=== PATIENT | female | born 1955 | race Caucasian/White ===

== ENCOUNTER → 2016-04-20 | Outpatient (CLI) | payer OTHER ==
[~2016-04-20] MED LIST: CEPH500C PO; CHOL100010 PO; FLXUNK PO; LISI-461 PO; LORA-741 PO; PHNRUNK PO; PROM25SU28 PR; RANI300T2 PO
--- NOTE | 2016-04-20 12:36 | DIAGNOSTIC IMAGING REPORT ---
CHEST 2 VIEWS ROUTINE CLINICAL HISTORY: Chest discomfort. History of left breast cancer. COMPARISON STUDY: Chest radiograph October 12, 2015. FINDINGS: Left axillary clips are noted. The left breast may be surgically absent. There are cholecystectomy clips. There is no pneumothorax or pleural effusion. No airspace opacities are identified. Cardiac size is normal. Mediastinal contours are normal. There is no evidence of pulmonary edema. IMPRESSION: No acute cardiopulmonary findings. Electronically signed by: Serge Delgado M.D. 04/20/2016 12:34 PM Dictated Date/Time: 04/20/2016 12:33 PM
== END | disposition home or self-care (01) ==
LOC: C.RAD 11:52
PROVIDERS: ATTEND Pediatrics
DX: R07.89 Other chest pain (principal)

== ENCOUNTER → 2016-05-02 | Outpatient (CLI) | payer OTHER ==
--- NOTE | 2016-05-02 16:18 | MAMMOGRAPHY REPORT ---
ULTRASOUND OF LEFT BREAST: 05/02/2016 CLINICAL HISTORY: 60-year-old woman with a personal history of left breast cancer status post mastec lv. She presents with a history of left chest pain for 3-4 weeks. The worst pain occurred over a 3-4 day. The quality was sharp and intense and sometimes took the patient's breath away. Over tho se 3-4 days it increased in frequency, occurring approximately every hour, but then the pain has sin ce disappeared completely. No palpable mass, skin thickening or color changes. COMPARISON: None FINDINGS: The patient pointed out the area of pain in the previous area of the left breast along he r chest wall approximately 4 cm inferior to the mastectomy scar, spanning around 8-10 cm in medial t o lateral dimension. On palpation, there is no discrete mass. On visual inspection no skin changes or peau d'orange. On ultrasound, there is no focal skin thickening or suspicious mass within the s ubcutaneous tissues. IMPRESSION: ACR BI-RADS CATEGORY 2: BENIGN There is no sonographic evidence of malignancy or suspicious abnormality to explain the patient's tr ansient sharp intensity pain inferior to her mastectomy scar. Clinical follow-up is recommended and also consider a breast MRI to evaluate for any abnormal enhancement along the left mastectomy scar and also to evaluate the right breast, given the personal history of breast cancer. These results and recommendations were discussed with the patient at the time of the exam. Alison Jones M.D. ay/:05/02/2016 13:34:19 Digital Marketing Program Manager: Mirtha RAMESH)([place]), [facility] letter sent: Normal 1/2 BI-RADS Code: ACR BI-RADS Category 2: Benign
== END | disposition home or self-care (01) ==
LOC: C.MAMM 09:57
PROVIDERS: ATTEND Nurse Practitioner Family
DX: R07.9 Chest pain, unspecified (principal); Z85.3 Personal history of malignant neoplasm of breast; Z90.12 Acquired absence of left breast and nipple; Z08 Encounter for follow-up examination after completed treatment for malignant neoplasm

== ENCOUNTER 2016-09-23 22:51 | Emergency (ER) | payer OTHER ==
[~2016-09-23] VITALS: Ht 160 cm; Wt 54.8 kg
[~2016-09-23 22:51] MED LIST changes: -CEPH500C PO; -PROM25SU28 PR
[2016-09-23 22:55] VITALS: TEMP 36.6; Ht 160 cm; Wt 54.8 kg
[2016-09-23] MEDS ORDERED: LABETALOL HCL IV 5 MG/ML 20ML IV STA (23:22)
[2016-09-23] MEDS ORDERED: LORAZEPAM 2 MG/ML 1 ML VIAL IV STA (23:22)
--- NOTE | 2016-09-23 23:29 | EMERGENCY ROOM VISIT NOTE ---
History Report prepared by [place]: Margareth Sloan Under the Supervision of: Dr. Sher Newsome M.D. First contact with patient: 23:12 Chief Complaint: RASH Stated Complaint: L ARM LYMPHEDEMA AND RASH History of Present Illness The patient is a 61 year old female who presents to the Emergency Room with complaints of left arm lymphedema and a rash that suddenly appeared today. The patient has breast cancer. She reports being hypertensive but having no other symptoms. The patient denies having a headache, chest pain, and shortness of breath. She states that she has no history of MRSA. Source of History: patient Onset: today Position: arm (left) Quality: other (lymphedema, rash ) Timing: other (sudden) Associated Symptoms: No headache, No chest pain, No SOB Review of Systems See HPI for pertinent positives & negatives. A total of 10 systems reviewed and were otherwise negative. Past Medical & Surgical Medical Problems: (1) Hypertension (2) Kidney stones (3) Malignant neoplasm of upper-inner quadrant of female breast (4) Skin problem Surgical Problems: (1) Ectopic (2) Hx of cholecystectomy (3) Hx of mastectomy (4) Ovarian cyst Family History Diabetes mellitus FH: lung disease FHx: cancer FHx: heart disease Hypertension Social History Smoking Status: Former Smoker Alcohol Use: none Drug Use: none Marital Status: Current/Historical Medications Scheduled Cephalexin Monohydrate (Keflex), 500 MG PO QID Lisinopril (Zestril), 10 MG PO DAILY Ranitidine (Zantac), 300 MG PO DAILY Scheduled PRN Lorazepam (Ativan), 0.5 MG PO HS PRN for Anxiety Promethazine Hcl (Phenergan Suppository), 25 MG IL UD PRN for Migraine Allergies Coded Allergies: Butalbital (Verified Allergy, Severe, "resp. spasms", 09/24/16) codiene/butalbital/caffeine (not acetamin.) Caffeine (Verified Allergy, Severe, "resp. spasms", 09/24/16) Anastrozole (Unverified Allergy, Intermediate, no rash but intense itching , 09/24/16) Azithromycin (Unverified Allergy, Mild, RASH, 09/24/16) Lansoprazole (Unverified Allergy, Mild, rash, 09/24/16) Tramadol (Unverified Allergy, Mild, rash, 09/24/16) Metronidazole (Verified Allergy, Unknown, ANAPHYLAXIS, 09/24/16) Adhesives (Verified Adverse Reaction, Mild, SKIN IRRITATION, 09/24/16) Letrozole (Unverified Adverse Reaction, Unknown, severe joint pain, ) Prochlorperazine (Unverified Adverse Reaction, Unknown, nausea, 09/24/16) Uncoded Allergies: UNCLAS THER/AG (Allergy, Unknown, ? INGREDIENT IN COUGH MEDICINE, 05/14/09) Physical Exam Vital Signs Date Time Temp Pulse Resp B/P (MAP) Pulse Ox O2 Delivery O2 Flow Rate FiO2 09/24/16 00:46 88 18 144/93 98 Room Air 09/23/16 23:49 63 18 171/97 95 Room Air 09/23/16 23:38 65 18 214/126 09/23/16 22:55 36.6 63 18 201/105 96 Room Air Physical Exam GENERAL: Patient is anxious appearing and in no acute distress. HEENT: No acute trauma, normocephalic atraumatic, mucous membranes moist, no nasal congestion, no scleral icterus. NECK: No stridor, no adenopathy, no meningismus, trachea is midline. LUNGS: No dyspnea. Clear to auscultation and equal bilaterally. No wheeze, no rhonchi. HEART: Regular rate and rhythm. No murmurs, rubs, gallops appreciated. ABDOMEN: Soft, nontender, bowel sounds positive, no masses appreciated, no peritonitis. BACK: No midline tenderness, no CVA tenderness EXTREMITIES: Normal motion all extremities, no cyanosis, no edema. NEUROLOGIC: Alert and oriented, no acute motor or sensory deficits, no focal weakness, cranial nerves grossly intact. SKIN: Lacy red rash over left forearm circumferential just proximal to small skin tear. Medical Decision & Procedures Laboratory Results 09/23/16 23:33 Red Blood Count 4.63, Mean Corpuscular Volume 95.2, Mean Corpuscular Hemoglobin 32.0, Mean Corpuscular Hemoglobin Concent 33.6, Mean Platelet Volume 9.2, Neutrophils (%) (Auto) 58.2, Lymphocytes (%) (Auto) 27.4, Monocytes (%) (Auto) 9.5, Eosinophils (%) (Auto) 4.4, Basophils (%) (Auto) 0.5, Neutrophils # (Auto) 2.27, Lymphocytes # (Auto) 1.07, Monocytes # (Auto) 0.37, Eosinophils # (Auto) 0.17, Basophils # (Auto) 0.02 09/23/16 23:33 Test 09/23/16 23:33 White Blood Count 3.90 K/uL (4.8-10.8) Red Blood Count 4.63 M/uL (4.2-5.4) Hemoglobin 14.8 g/dL (12.0-16.0) Hematocrit 44.1 % (37-47) Mean Corpuscular Volume 95.2 fL (80-100) Mean Corpuscular Hemoglobin 32.0 pg (25-34) Mean Corpuscular Hemoglobin Concent 33.6 g/dl (32-36) Platelet Count 195 K/uL (130-400) Mean Platelet Volume 9.2 fL (7.4-10.4) Neutrophils (%) (Auto) 58.2 % Lymphocytes (%) (Auto) 27.4 % Monocytes (%) (Auto) 9.5 % Eosinophils (%) (Auto) 4.4 % Basophils (%) (Auto) 0.5 % Neutrophils # (Auto) 2.27 K/uL (1.4-6.5) Lymphocytes # (Auto) 1.07 K/uL (1.2-3.4) Monocytes # (Auto) 0.37 K/uL (0.11-0.59) Eosinophils # (Auto) 0.17 K/uL (0-0.5) Basophils # (Auto) 0.02 K/uL (0-0.2) RDW Standard Deviation 44.8 fL (36.4-46.3) RDW Coefficient of Variation 12.8 % (11.5-14.5) Immature Granulocyte % (Auto) 0.0 % Immature Granulocyte # (Auto) 0.00 K/uL (0.00-0.02) Anion Gap 5.0 mmol/L (3-11) Est Creatinine Clear Calc Drug Dose 69.9 ml/min Estimated GFR () 108.1 Estimated GFR (Non- 93.3 BUN/Creatinine Ratio 19.7 (10-20) Calcium Level 9.4 mg/dl (8.5-10.1) Total Creatine Kinase 97 U/L (26-192) Troponin I < 0.015 ng/ml (0-0.045) C-Reactive Protein < 0.29 mg/dl (0-0.29) Laboratory results as reviewed by me. Medications Administered Medications (Trade) Dose Ordered Sig/Liang Route Start Time Stop Time Status Last Admin Dose Admin Labetalol HCl (Normodyne IV) 10 mg NOW STAT IV 09/23/16 23:22 09/23/16 23:23 DC 09/23/16 23:40 10 MG Lorazepam (Ativan Inj) 0.5 mg NOW STAT IV 09/23/16 23:22 09/23/16 23:23 DC 09/23/16 23:40 0.5 MG Cephalexin Monohydrate (Keflex Cap) 500 mg NOW ONCE PO 09/24/16 00:30 09/24/16 00:31 DC 09/24/16 00:40 500 MG ECG Indication: other (lymphadema ) Rate (beats per minute): 66 Rhythm: normal sinus Findings: no acute ischemic change, no ectopy ED Course 2315: The patient was evaluated in room A4. A complete history and physical exam was performed. 2322: Ordered Lorazepam 0.5 mg IV, Labetalol HCl 10 mg IV. 0019: I checked on the patient and she feels well and wants to go home. Her blood pressure has improved. I discussed the remote possibility of a blood clot. She makes it clear that there is no swelling beyond her normal swelling. We are not ordering an ultrasound at this time. She will follow up with her PCP regarding her symptoms and her blood pressure. 0030: Ordered Cephalexin Monohydrate 500 mg PO. 0035: Reevaluated the patient. Discussed results and discharge instructions: She verbalized understanding and agreement. The patient is ready for discharge. Medical Decision Differential: Contact Dermatitis, DVT, Urticaria, Allergic Reaction, Cellulitis , Fungal, amongst other pathologies entertained. Medication Reconciliation: I attest that I have personally reviewed the patient 's current medication list. Blood pressure screening: Patient was found to have an elevated blood pressure and was referred to their primary doctor for recheck and further treatment. 51 yr old very pleasant female with left forearm erythema. Lacy in nature and circumferential. Patient makes clear no increase in swelling compared to normal. Distal pulses/nv intact without any swelling in hand/wrist. There is small knick in skin just distal to erythema. Labs unremarkable. Suspect this is heat reaction from being in sleeve in heat earlier today, however with her lymphedema history and break in skin I feel it indicated to treat with abx. I do not feel there is DVT. Came on too quickly for fungal. No clear evidence of allergic reaction. It is not herpetic in nature. We discussed symptoms requiring return. Follow up with PCP, especially given her HTN, though she makes very clear that she has severe white coat syndrome and that it usually is much better at home. Impression Primary Impression: Acute eruption of skin Additional Impression: Hypertension Scribe Attestation The scribe's documentation has been prepared under my direction and personally reviewed by me in its entirety. I confirm that the note above accurately reflects all work, treatment, procedures, and medical decision making performed by me. Departure Information Dispostion Home / Self-Care Prescriptions Cephalexin Monohydrate (Keflex) 500 Mg Cap 500 MG PO QID for 10 Days, #40 CAP Prov: Sher Newsome M.D. 09/24/16 Referrals Azra Lowry C.RSarahNSarahP. (PCP) Patient Instructions My [facility] Additional Instructions Keep arm elevated. Avoid excessive heat/sweating. Return if worsening rash, fevers, shortness of breath, swelling, pain or other concerns. We are always here to help. Your blood pressure was elevated during this visit. This is quite common in many people who are being evaluated in the Emergency Department for many reasons. However, it is important that you have your Primary Care Provider recheck your blood pressure and discuss whether treatment will be needed. intermodal dispatcher elevated blood pressure can lead to strokes, heart attacks, kidney failure amongst other medical issues. If you develop severe headaches, chest pain, weakness in arms or legs, or other concerning symptoms call 911. Problem Qualifiers
[2016-09-23 23:43] LABS: BASO % 0.5 %; BASO ABS # 0.02 K/uL (0-0.2); COMPLETE YES; EOS % 4.4 %; HEMATOCRIT 44.1 % (37-47); LYMPH % 27.4 %; LYMPH ABS # 1.07 K/uL (1.2-3.4); MEAN CELL VOLUME 95.2 fL (80-100); MEAN CORPUSCULAR HGB CONC 33.6 g/dl (32-36); MEAN PLATELET VOLUME 9.2 fL (7.4-10.4); MONO % 9.5 %; NEUT % 58.2 %; PLATELET COUNT 195 K/uL (130-400); RED BLOOD COUNT 4.63 M/uL (4.2-5.4)
[2016-09-24] LABS: BLOOD UREA NITROGEN 14 mg/dl (7-18); BUN/CREATININE RATIO 19.7 (10-20); CALCIUM 9.4 mg/dl (8.5-10.1); CARBON DIOXIDE 32 mmol/L (21-32); CHLORIDE 107 mmol/L (98-107); CREATININE 0.69 mg/dl (0.60-1.20); GLUCOSE 98 mg/dl (70-99); POTASSIUM 3.6 mmol/L (3.5-5.1); SODIUM 144 mmol/L (136-145)
[2016-09-24 00:05] LABS: C-REACTIVE PROTEIN < 0.29 mg/dl (0-0.29)
[2016-09-24] MEDS ORDERED: CEPH500C PO (00:20)
[2016-09-24] MEDS ORDERED: CEPHALEXIN MONOHYDRATE 250 MG CAP PO ONE (00:30)
[2016-09-24] MEDS ORDERED: PROM25SU28 PR (00:41)
[2016-09-24 00:46] VITALS: BP 144/93; PULSE 88; O2SAT 98
== END 2016-09-24 00:50 | disposition home or self-care (01) ==
LOC: C.EDB 22:54 → C.EDA 09-24 00:50
DX: L53.9 Erythematous condition, unspecified (principal); I10 Essential (primary) hypertension; Z85.3 Personal history of malignant neoplasm of breast; Z90.10 Acquired absence of unspecified breast and nipple; Z87.442 Personal history of urinary calculi; Z90.49 Acquired absence of other specified parts of digestive tract; Z83.3 Family history of diabetes mellitus; Z80.9 Family history of malignant neoplasm, unspecified; Z82.49 Family history of ischemic heart disease and other diseases of the circulatory system; Z79.899 Other long term (current) drug therapy

== ENCOUNTER → 2016-10-12 | Outpatient (CLI) | payer OTHER ==
[~2016-10-12] MED LIST changes: -CHOL100010 PO; -FLXUNK PO; -PHNRUNK PO; +PROM25SU28 PR
== END | disposition home or self-care (01) ==
LOC: C.MAMM 11:29
PROVIDERS: ATTEND Nurse Practitioner Family
DX: M81.0 Age-related osteoporosis without current pathological fracture (principal); M85.88 Other specified disorders of bone density and structure, other site

== ENCOUNTER → 2017-03-06 | Outpatient (CLI) | payer OTHER ==
[~2017-03-06] VITALS: Ht 160 cm; Wt 54.6 kg
[2017-03-06 13:57] VITALS: BP 153/102; PULSE 59; Ht 160 cm; Wt 54.6 kg
== END | disposition home or self-care (01) ==
LOC: C.NEUR 13:44
PROVIDERS: ATTEND Internal Medicine Pulmonary Disease
DX: G47.33 Obstructive sleep apnea (adult) (pediatric) (principal)

== ENCOUNTER → 2017-03-21 | Outpatient (CLI) | payer OTHER ==
--- NOTE | 2017-03-23 14:40 | POLYSOMNOGRAPH REPORT ---
CLINICAL DATA: A 61-year-old female with BMI of 21.3 referred by myself for a sleep study. She previously had sleep apnea and was treated by Dr. Luu with CPAP. She could not tolerate it and abandoned its use. Her is reporting increased snoring and witnessed apneic episodes. Her [place] sleepiness score is 18/24. On the evening of 03/21/2017, a home sleep apnea test was performed using a Tessa type 3 monitor. RECORDING RESULTS: Total recording time was 10 hours. The patient's estimated sleep time and patient monitoring time was 9 hours. RESPIRATORY DATA: Severe sleep apnea was documented. The ELDA was 41.6. There were 334 obstructive, 1 mixed, and 1 central apneic episode. There were 37 hypopneic episodes. The longest respiratory event recorded was 63 seconds. OXIMETRY DATA: Mild nocturnal hypoxemia was seen. Oxygen conor was 82%. Mean saturation was 93%. Time below 89% was 7 minutes. HEART RATE DATA: Heart rates ranged from 47-60 beats per minute. SNORING DATA: Snoring was recorded throughout the night. IMPRESSION: Severe sleep apnea/hypopnea with an ELDA of 41.6. RECOMMENDATIONS: The patient may benefit from use of auto CPAP, a repeat sleep study with CPAP, or use of an oral appliance. Clinical correlation is needed. NIK
== END | disposition home or self-care (01) ==
LOC: C.NEUR 09:45
PROVIDERS: ATTEND Internal Medicine Pulmonary Disease
DX: G47.33 Obstructive sleep apnea (adult) (pediatric) (principal)

== ENCOUNTER → 2017-04-16 | Outpatient (CLI) | payer OTHER ==
--- NOTE | 2017-04-17 05:37 | PAP/PSG TECHNICIAN REPORT ---
[facility] Electric Power Superintendent Polysomnogram Report Study name: None Report date: 04/17/2017 Study date: 04/16/2017 Referring Physician: Kimberly Apodaca PA-C Name: CHRISTINA MEEKS Interpreting Physician: Zev Jackson M.D. Date of : 1955 Electric Power Superintendent[facility] Shaz[facility]reguin [facility]. Sex: Female Age: 61 StudyType: PSG PAP Weight: 118 lbs Height: 61 years, Height 5' 4" Neck Circum:12.25inches BMI: 20.25 Medications: Benadryl, Cyclobenzaprine HCl 10mg, Lisinopril 10mg, Lorazepam 0.5mg, Phenergan, Zantac Patient History Study started on room air with 4cwp cpap in room #6. 61 yr old female here tonight for a new titration study. She had a HST that had an ELDA of 41.6. She was diagnosed with NATHANIEL in the past but was unable to tolerate cpap but is willing to try again. ESS=18/24.Neck circ=12.25inches. Parameters Monitored NPSG: E1-M2, E2-M1, Fp1-M2, Fp2-M1, F3-M2, F4-M2, F4-M1, C3-M2, C4-M2, C4-M1, O1-M2, O2-M2, O2-M1, T3-M2, T4-M1, P3-M2, P4-M1, CHIN1, CHIN2, HR, EKG, Legs, PFLOW, SNOR, FLOW, CFLOW, Tidal Volume, THOR, ABDO, SpO2, PLTH, CPRESS, ETCO2 Wave, ETCO2, pH Sleep Architecture Sleep Stages Time at Lights Off 10:06:55 PM STAGES Time (min.) TST (%) Time at Lights On 5:28:55 AM Wake 90.5 -- Total Recording Time (TRT) 442.00 min. N1 11.5 3 Total Sleep Period (TSP) 415.0 min. N2 170.0 48 Total Sleep Time (TST) 351.5min. N3 121.5 35 Awake Time 90.5 min. REM 48.5 14 Wake after Sleep Onset 65.0 min. Sleep Efficiency (SE) 80 % Sleep Onset Latency (VIVIAN) 25.5 min. Number of Stage 1 Shifts None Awakenings 19 Stage Changes 67 Number of REM periods 3 REM 48.5 14 REM Latency 139.5 min. NREM 303.0 86 Body Position Analysis Supine Right Left Side Prone Vertical Total Sleep Time (min.) 85.7 268.5 3.5 272.03 0.0 0.0 Total Sleep Time (%) 23% 76% 1% 77 0% N/A% Total Sleep Time REM (min.) 23.0 25.5 0.0 None 0.0 0.0 Total Sleep Time NREM (min.) 56.5 243.0 3.5 None 0.0 0.0 Intermittent Wake (min.) 6.2 81.9 2.3 None 0.0 0.0 Total Sleep Period (%) 20% None None None None None Arousals Myoclonus (PLM) * Events Count Index Events Count Index Spontaneous 16 3 Events Awake (PLMW) 33 21.9 Respiratory 4 1.0 Events Asleep w/ Arousal (PLMA) 4 0.7 PLM 3 1 Events Asleep w/o Arousal (PLMS) 35 6.0 Snoring 2 0 Total Asleep 39 6.7 Total 24 4 Total 72 10 Respiratory Analysis * CA OA MA CH H RERA Total Count 0 4 1 0 1 0 6 Index 0.0 0.7 0.2 0 0.2 0 1.0 Mean Duration 0.0 22.9 32.5 0.00 44.8 0.0 28.2 Longest Duration 0.0 34.7 32.5 0.00 32.5 0.0 44.8 Respiratory Event Summary Total Supine ~Supine Right Left Prone REM NREM Apneas Count 5 2 3 1 2 N/A 2 3 Index 0.9 2 1 0.2 34.3 N/A 2 1 Hypopneas (4% Desat) Count 1 1 0 0 0 N/A 1 0 Index 0.2 0.8 0 0.0 0.0 N/A 1.2 0.0 Apneas & All Hypopneas Count 6 3 3 1 2 N/A 3 3 Index 1.0 2 1 0 34 N/A 3.7 0.6 Respiratory Events (Sliver Lap Tender+All Hyp+RERA) Count 6 3 3 1 2 N/A 3 3 Index 1.0 2 1 0.2 34.3 N/A 3.7 0.6 Respiratory Related Arousal Count 4 3 3 1 2 N/A 3 3 Index 1.0 2 1 0 34 N/A 4 1 Snoring Analysis Supine Right Left Prone REM NREM Total Snore duration 2.7 min Snores count 89 28 0 N/A 35 82 117 Snore mean duration 1.4 Sec Snores index 67 6 0 N/A 43.3 16.2 20.0 TST with snoring (%) 0.8% Desaturation Event Summary: Minimum %SpO2 Event Count Mean/Min/Max Duration(sec.) Desaturation Index % Time In Bed > 90 7 42.1 / 33.3 / 49.5 1.0 99.7 86 - 90 0 N/A 0.0 0.3 81 - 85 0 N/A 0.0 0.0 76 - 80 0 N/A 0.0 0.0 71 - 75 0 N/A 0.0 0.0 66 - 70 0 N/A 0.0 0.0 61 - 65 0 N/A 0.0 0.0 56 - 60 0 N/A 0.0 0.0 51 - 55 0 N/A 0.0 0.0 < 50 0 N/A 0.0 0.0 Total REM NREM Awake <50% 0.0 min. 0.0 min. 0.0 min. 0.0 min. 51 - 60% 0.0 min. 0.0 min. 0.0 min. 0.0 min. 61 - 70% 0.0 min. 0.0 min. 0.0 min. 0.0 min. 71 - 80% 0.0 min. 0.0 min. 0.0 min. 0.0 min. 81 - 90% 1.3 min. 0.8 min. 0.3 min. 0.1 min. 91 - 100% 436.3 min. 47.7 min. 302.7 min. 85.9 min. Average 93 93 93 94 Minimum SpO2 90 90 90 90 Desaturation Event Index 1.0 2.5 0.2 3.3 # Desat. Events below 89% N/A N/A N/A N/A Time(%) with Saturation below 89% 0.0 0.0 0.0 0.0 Time(min.) with Saturation below 89% 0.0 0.0 0.0 0.0 Time (mins) REM (mins) NREM (mins) % of TST SpO2 Below 90% 2 1 N1 0.0 SpO2 Below 88% 0 0 0 0 Heart Rate Analysis Min (bpm) Max (bpm) Average (bpm) Awake 54 89 64 NREM 50 87 61 REM 57 81 66 Overall 50 87 61 Supplemental O2 Values Minimum O2 level: None Value Start Time End Time Electric Power Superintendent Comments Mrs. Meeks slept in the right and supine positions. No cardiac arrhythmia or PLM's noted. No bruxism noted. CPAP was initiated at +4 CMH2O and up-titrated to a level of +7 CMH2O. A small Quattro Air full face mask by [employer] was used during titration She awoke to use the restroom 1 time during the night. She stated that she slept better than she expected. The final report will be interpreted and signed by a sleep physician. The completed physician report will then be placed in the patient medical record. Therapy Event: Therapy (cm H20) 4 5 6 7 Total Time at Pressure (min.) 184.3 163.9 22.4 71.4 TST at Pressure (min.) 151.5 158.2 20.3 21.5 # Periods 1 1 1 1 Sleep Onset (min.) 25.5 0.2 0.0 47.4 REM Onset (min.) 165.0 0.2 N/A N/A Sleep Efficiency % 82 96 90 30 Wakefulness (%) 17.8 3.5 9.3 69.9 Wakefulness (min.) 32.8 5.7 2.1 49.9 NREM 1 (%) 2.7 1.2 8.9 3.5 NREM 1 (min.) 5.0 2.0 2.0 2.5 NREM 2 (%) 18.2 60.5 81.8 26.6 NREM 2 (min.) 33.5 99.2 18.3 19.0 NREM 3 (%) 51.0 16.8 0.0 0.0 NREM 3 (min.) 94.0 27.5 0.0 0.0 REM (%) 10.3 18.0 0.0 0.0 REM (min.) 19.0 29.5 0.0 0.0 # Arousals 17 3 3 1 Arousal Index 6.7 1.1 8.9 2.8 # Snore 51 61 4 1 Snore Index 20.2 23.1 11.8 2.8 AHI 1.6 0.0 5.9 0.0 AHI Supine 7.8 0.0 0.0 N/A AHI Non-Supine 0.5 0.0 34.3 0.0 NREM AHI 0.5 0.0 5.9 0.0 REM AHI 9.5 0.0 N/A N/A RDI 1.6 0.0 5.9 0.0 # Obstructive 3 0 1 0 # Central Ap 0 0 0 0 # Mixed 0 0 1 0 # Hypopneas 1 0 0 0 RERAS 0 0 0 0 Total Respiratory Events 4 0 2 0 Time Below SpO2 89.00% (min.) 0.0 0.0 0.0 0.0 Mean NREM SpO2 (%) 93 93 93 93 Mean REM SpO2 (%) 93 93 N/A N/A Mean Sleep SpO2 (%) 93 93 93 93 Min NREM SpO2 (%) 91 90 92 91 Min REM SpO2 (%) 90 90 N/A N/A Position Supine (min.) 23.0 39.7 16.8 0.0 Position Non-supine (min.) 128.5 118.5 3.5 21.5 LM Index Sleep 10.7 2.7 0.0 14.0 LM Index NREM 10.9 3.3 0.0 14.0 LM Index REM 9.5 0.0 N/A N/A Mean Heart Rate (bpm) 63 61 57 58 Min Heart Rate (bpm) 55 51 50 54
--- NOTE | 2017-04-18 13:22 | POLYSOMNOGRAPH REPORT ---
CLINICAL DATA: A 61-year-old female with a BMI of 28.25 referred by Kimberly Apodaca, Azra Lowry and myself for a new titration study. She had a home sleep apnea test which showed severe sleep apnea with an ELDA of 41.6. She had tried CPAP in the past, but had difficulty with it but is willing to try again. Her [place] sleepiness score is 18/24. SLEEP ARCHITECTURE: Total sleep period was 415 minutes. Total sleep time was 351.5 minutes divided between 303 minutes of non-REM sleep and 48.5 minutes of REM sleep. Sleep onset latency was 25.5 minutes. REM latency was 139.5 minutes. Sleep efficiency was 80%. Wake after sleep onset was 65 minutes. Sleep consisted of stage N1 3%, stage N2 48%, stage N3 35%, and REM 14%. AROUSAL DATA: Twenty four arousals were recorded for an index of 4 per hour. PERIODIC LIMB MOVEMENT DATA: Thirty nine limb movements during sleep were noted for an index of 6.7 per hour with an arousal index of 0.7 per hour. RESPIRATORY DATA: The AHI was 1. There were 4 obstructive and 1 mixed apneic episodes. The longest apneic episode was 34.7 seconds. There was 1 hypopneic episode, 32.5 seconds in duration. OXIMETRY DATA: No hypoxemia was seen. Oxygen conor was 90%. Mean saturation was 92%. ECHOCARDIOGRAM: Heart rates ranged from 50-87 beats per minute. No arrhythmias were noted. STRATEGIC PLANNING SPECIALIST'S COMMENTS AND TREATMENT SUMMARY: The patient slept in the right and supine positions. A small Quattro full facemask by [employer] was used. The patient was titrated up to her final pressure setting of 7 cm of water pressure. At this setting, she slept for 21.5 minutes with an AHI of 0. IMPRESSION: Severe obstructive sleep apnea corrected with CPAP 7 cm of water pressure, small Quattro full facemask by [employer]. RECOMMENDATIONS: The patient will be seen back in followup to be started on CPAP at the above noted pressure settings if she agrees to try it again. [facility]
== END | disposition home or self-care (01) ==
LOC: C.NEUR 20:00
PROVIDERS: ATTEND Physician Assistant Medical
DX: G47.33 Obstructive sleep apnea (adult) (pediatric) (principal)

== ENCOUNTER → 2017-04-24 | Outpatient (CLI) | payer OTHER ==
--- NOTE | 2017-04-24 16:42 | DIAGNOSTIC IMAGING REPORT ---
CT SCAN OF THE ABDOMEN AND PELVIS WITHOUT CONTRAST CLINICAL HISTORY: RT SIDED FLANK PAIN COMPARISON STUDY: 01/06/2009 TECHNIQUE: CT scan of the abdomen and pelvis was performed from the lung bases to the proximal femurs. Images are reviewed in the axial, sagittal, and coronal planes. IV contrast was not administered for this examination. A dose lowering technique was utilized adhering to the principles of ALARA. CT DOSE: 501.02 mGy.cm FINDINGS: Lower chest: The heart is normal in size and configuration, without pericardial effusion. The lung bases and pleural spaces are clear. Liver: The unenhanced liver is normal in size, contour, and attenuation. There is no intrahepatic biliary ductal dilatation. Gallbladder: Surgically absent Spleen: Normal in size and attenuation. Pancreas: Unremarkable. Adrenal glands: Unremarkable. Kidneys: There is a nonobstructing 2 mm upper pole right renal calculus. No left renal calculi are visualized. A right pelvic basin calcification located medial to the acetabulum is felt to represent a phlebolith. No ureteral calculi are visualized. Bowel: There are no transition zone to indicate bowel obstruction. There is a moderate amount of stool within the colon. There is chronic diverticulosis. There are no acute peridiverticular inflammatory changes. By history the appendix is surgically absent Peritoneum: There is no intraperitoneal free air or abdominal ascites. Vasculature: The abdominal aorta is normal in course and caliber. Adenopathy: None. Pelvic viscera: The bladder, and pelvic viscera are unremarkable. Skeletal structures: No destructive osseous lesions are seen. IMPRESSION: 1. 2 mm right renal calculus 2. No ureteral or bladder calculi identified 3. No evidence of bowel obstruction. No evidence of free air 4. Diverticulosis. No evidence of acute diverticulitis. Electronically signed by: Santiago Chin M.D. 04/24/2017 4:41 PM Dictated Date/Time: 04/24/2017 4:36 PM
== END | disposition home or self-care (01) ==
LOC: C.CTS 16:25
PROVIDERS: ATTEND Student in an Organized Health Care Education/Training Program
DX: R10.9 Unspecified abdominal pain (principal); N20.0 Calculus of kidney

== ENCOUNTER 2017-06-26 22:38 | Inpatient (IN) | payer OTHER ==
[~2017-06-26] VITALS: Ht 160 cm; Wt 54.3 kg
[2017-06-26] MEDS ORDERED: ALUMINUM/MAGNESIUM SUSP 30 ML UDC PO STA (23:23)
[2017-06-26] MEDS ORDERED: LIDOCAINE HCL 2% VISC SOLN 20 ML UDC PO STA (23:23)
[2017-06-26 23:39] LABS: BASO % 0.9 %; BASO ABS # 0.05 K/uL (0-0.2); EOS % 3.2 %; EOS ABS # 0.17 K/uL (0-0.5); HEMOGLOBIN 16.8 g/dL (12.0-16.0); IG# 0.01 K/uL (0.00-0.02); LYMPH ABS # 1.91 K/uL (1.2-3.4); MEAN CORPUSCULAR HEMOGLOBIN 32.2 pg (25-34); MEAN CORPUSCULAR HGB CONC 34.3 g/dl (32-36); MONO % 9.2 %; MONO ABS # 0.49 K/uL (0.11-0.59); NEUT % 50.5 %; NEUT ABS # 2.68 K/uL (1.4-6.5); PLATELET COUNT 266 K/uL (130-400); RED CELL DISTRIBUTION WIDTH CV 12.8 % (11.5-14.5); RED CELL DISTRIBUTION WIDTH SD 44.1 fL (36.4-46.3); WHITE BLOOD COUNT 5.31 K/uL (4.8-10.8)
--- NOTE | 2017-06-26 23:39 | EMERGENCY ROOM VISIT NOTE ---
History Report prepared by [place]: Bala Borrego Under the Supervision of: Dr. Gayle Gusman D.O. First contact with patient: 23:05 Chief Complaint: CHEST PAIN Stated Complaint: CHEST PAIN, BACK PAIN Nursing Triage Summary: Patient reports she was standing in the doorway at a friends and developed a sharp pain in her head and then pain across her back "like a band", in her chest, and a lump in her throat. 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 Patient denies cardiac history. Patient denies shortness of breath, nausea, or diaphoresis. History of Present Illness The patient is a 61 year old female who presents to the Emergency Room with complaints of waxing and waning, sharp, back pain beginning 1 hour ago. The patient states she was standing in a hallway talking to a friend when she experienced a sharp pain in her neck. She reports she has a history of migraines and believed that was the source of her discomfort. The patient notes her discomfort went away in her neck after a few minutes. She states she then developed a sharp pain in her back that radiated around to her sides. The patient reports her discomfort has yet to full be alleviated. She notes it has subsided slightly, but it has spread around to her chest. The patient states she intermittently feels like something is in her throat. She reports she has a history of GERD, but her current discomfort does not feel like her previous GERD. The patient denies burning or a history of this discomfort in her back. She notes she has a history of HTN and takes medication. The patient states her blood pressure is typically stable, but she will occasionally experience periods of elevated blood pressure. She reports she has not taken her blood pressure in a while, but she did take it prior to arrival; it was elevated. The patient notes she was not in a stressful situation when her symptoms started, but her mother recently moved in with her and her . She states she also has a history of breast cancer and was treated with a mastectomy, chemotherapy, and radiation. The patient denies nausea, vomiting, shortness of breath, current discomfort in her neck, a history of a cardiac event, and abdominal pain. Source of History: patient Onset: one hour ago Position: back Quality: sharp Timing: waxes/wanes Associated Symptoms: + neck pain (resolved), + chest pain, No SOB, No nausea , No vomiting, No abdominal pain Note: Associated symptoms: elevated blood pressure, recent stress, Denies: burning, a history of back discomfort, a history of a cardiac event Review of Systems See HPI for pertinent positives & negatives. A total of 10 systems reviewed and were otherwise negative. Past Medical & Surgical Medical Problems: (1) Hypertension (2) Kidney stones (3) Malignant neoplasm of upper-inner quadrant of female breast (4) Skin problem Surgical Problems: (1) Ectopic (2) Hx of cholecystectomy (3) Hx of mastectomy (4) Ovarian cyst Family History Diabetes mellitus FH: lung disease FHx: cancer FHx: heart disease Hypertension Social History Smoking Status: Never Smoker Alcohol Use: none Drug Use: none Marital Status: Current/Historical Medications Scheduled Lisinopril (Zestril), 10 MG PO DAILY Ranitidine (Zantac), 300 MG PO DAILY Scheduled PRN Lorazepam (Ativan), 0.5 MG PO HS PRN for Anxiety Promethazine Hcl (Phenergan Suppository), 25 MG PA UD PRN for Migraine Allergies Coded Allergies: Butalbital (Verified Allergy, Severe, "resp. spasms", 06/27/17) codiene/butalbital/caffeine (not acetamin.) Caffeine (Verified Allergy, Severe, "resp. spasms", 06/27/17) Anastrozole (Unverified Allergy, Intermediate, no rash but intense itching , 06/27/17) Azithromycin (Unverified Allergy, Mild, RASH, 06/27/17) Lansoprazole (Unverified Allergy, Mild, rash, 06/27/17) Tramadol (Unverified Allergy, Mild, rash, 06/27/17) Metronidazole (Verified Allergy, Unknown, ANAPHYLAXIS, 06/27/17) Adhesives (Verified Adverse Reaction, Mild, SKIN IRRITATION, 06/27/17) Letrozole (Unverified Adverse Reaction, Unknown, severe joint pain, ) Prochlorperazine (Unverified Adverse Reaction, Unknown, nausea, 06/27/17) Uncoded Allergies: UNCLAS THER/AG (Allergy, Unknown, ? INGREDIENT IN COUGH MEDICINE, 05/14/09) Physical Exam Vital Signs Date Time Temp Pulse Resp B/P (MAP) Pulse Ox O2 Delivery O2 Flow Rate FiO2 06/27/17 02:25 96 18 121/94 92 Room Air 06/27/17 02:11 103 06/27/17 00:49 89 16 121/93 92 Nasal Cannula 2.0 06/26/17 23:03 99 Room Air 06/26/17 22:57 99 06/26/17 22:46 85 16 177/131 99 Room Air Physical Exam HEENT: Head - normocephalic and atraumatic Pupils are equal, round, and reactive to light. Extraocular eye muscles are intact, and sclera are anicteric. Nose - moist nasal mucosa without discharge. Mouth - moist buccal mucosa. Oropharynx is nonerythematous and there is no tonsillar exudate or edema noted. Neck: Supple; no JVD, nuchal rigidity, cervical lymphadenopathy, or auscultated bruits. Heart: Regular rate and rhythm. There is a normal S1 and S2 with no murmurs, clicks, or gallops appreciated. Lungs: Clear to auscultation bilaterally with no wheezes, rales, or rhonchi. Abdomen: Soft, completely nontender, nondistended, with good bowel sounds. There are no palpable pulsatile masses or hepatosplenomegaly. There is no guarding, rigidity, or rebound noted. Extremities: No evidence of cyanosis, clubbing, or edema. There are easily palpable peripheral pulses. Skin: warm and dry with good turgor and no rashes. Medical Decision & Procedures ER Provider Diagnostic Interpretation: Radiology results as stated below per my review and the radiologist's interpretation: Portable Chest x-ray One View per my interpretation: narrow mediastinum, no pulmonary pathology. CTA Chest: No dissection or other acute aortic syndrome. Groundglass opacities and interstitial thickening in the lower lobes suggesting volume overload/edema. Left mastectomy with axillary lymph node dissection. Radiologist: Dre Munoz MD Study ready at 8624 and initial results transmitted at 0102. Laboratory Results Test 06/26/17 22:55 06/26/17 23:27 Prothrombin Time 10.0 SECONDS (9.0-12.0) Prothromb Time International Ratio 1.0 (0.9-1.1) Activated Partial Thromboplast Time 26.5 SECONDS (21.0-31.0) Partial Thromboplastin Ratio 1.0 Magnesium Level 2.3 mg/dl (1.8-2.4) Total Bilirubin 0.5 mg/dl (0.2-1) Direct Bilirubin < 0.1 mg/dl (0-0.2) Aspartate Amino Transf (AST/SGOT) 27 U/L (15-37) Alanine Aminotransferase (ALT/SGPT) 36 U/L (12-78) Alkaline Phosphatase 117 U/L (45-117) Pro-B-Type Natriuretic Peptide 99 pg/ml (0-900) Total Protein 8.3 gm/dl (6.4-8.2) Albumin 4.4 gm/dl (3.4-5.0) Bedside Hemoglobin 16.3 g/dl (12.0-16.0) Bedside Hematocrit 48 % (37-47) Bedside Sodium 139 mEq/L (135-144) Bedside Potassium 3.3 mEq/L (3.3-5.0) Bedside Chloride 103 mEq/L (101-112) Bedside Total CO2 26 mEq/l (24-31) Bedside Blood Urea Nitrogen 13 mg/dl (7-18) Bedside Creatinine 0.6 mg/dl (0.6-1.3) Bedside Glucose (other) 124 mg/dl (70-99) Bedside Ionized Calcium (Ines) 1.14 mmol/l (1.12-1.32) Laboratory results per my review. Medications Administered Medications (Trade) Dose Ordered Sig/Liang Route Start Time Stop Time Status Last Admin Dose Admin Lidocaine HCl (Viscous Lidocaine 2% Soln) 10 ml NOW STAT PO 06/26/17 23:23 06/26/17 23:24 DC 06/26/17 23:28 10 ML Al Hydroxide/Mg Hydroxide (Maalox Susp) 30 ml NOW STAT PO 06/26/17 23:23 06/26/17 23:24 DC 06/26/17 23:28 30 ML Hydromorphone HCl (Dilaudid Inj) 0.5 mg NOW STAT IV 06/26/17 23:51 06/26/17 23:52 DC 06/26/17 23:57 0.5 MG Ondansetron HCl (Zofran Inj) 4 mg NOW STAT IV 06/27/17 00:48 06/27/17 00:49 DC 06/27/17 00:53 4 MG Heparin Sodium/ Dextrose 1 ea NOW STAT N/A 06/27/17 01:15 06/27/17 01:17 DC 06/27/17 01:41 1 EA Heparin Sodium/ Dextrose (Heparin 25,000 Unit/500ml D5W) 25,000 unit STK-MED ONCE .ROUTE 06/27/17 01:27 06/27/17 01:28 DC 06/27/17 01:38 25,000 UNIT Morphine Sulfate (MoRPHine SULFATE INJ) 2 mg Q30M PRN IV 06/27/17 02:15 07/11/17 02:14 06/27/17 03:34 2 MG Procedure 2323: Ordered Maalox Susp 30ml PO, Lidocaine HCl 10ml PO 2351: Ordered Hydromorphone HCl 0.5mg IV 0048: Ordered Ondansetron Hcl 4mg IV 0115: Ordered Heparin Sodium/Dextrose 1 ea N/A ECG Per My Interpretation Indication: chest pain Rate (beats per minute): 96 Rhythm: normal sinus Findings: T-wave inversion (in AVL) Comparison ECG Date: 09/23/16 Change: TWI in AVL are new. Second EKG in the same visit: NS with a rate of 95. PVCs are present. The TWI in AVL has resolved. TWIs are now present in the lateral leads. ED Course 2310: The patient was evaluated in room A10. A complete history and physical examination were performed. Nursing notes and previous electronic medical records were reviewed. IV lock was established and labs were drawn as above. A 12-lead EKG was obtained as described above. Patient had a portable chest x- ray as described above. 2323: Ordered Maalox Susp 30ml PO, Lidocaine HCl 10ml PO 2351: I reevaluated the patient. She has shown no relief of pain with GI cocktail. Pain is an 8/10 in back and chest. Ordered Hydromorphone HCl 0.5mg IV 0007: The nurse informed me the patient had a positive troponin. 0047: The nurse informed me the patient's pain is at a 2/10, but she feels like she is going to vomit. 0048: Ordered Ondansetron Hcl 4mg IV 0111: Upon reevaluation, I discussed findings and results with the patient. She verbalized agreement of the treatment plan. The patient will be evaluated for further management and care. 0113: I spoke with Dr. Monet of the [facility] Hospitalist Service. The patient will be evaluated for further management and care. 0115: Ordered Heparin Sodium/Dextrose 1 ea N/A Medical Decision The patient is a 61 year old female who presents to the ED with waxing and waning, sharp, back pain beginning an hour ago. Differential diagnosis includes aortic dissection, GERD, ACS, anxiety, and costochondritis. Lab results show: Potassium is low at 3.1, normal renal function, glucose of 114 , normal LFTs, troponin is elevated at 0.586, no leukocytosis, stable H&H. This is a 61-year-old female patient presents to the emergency department with a sudden onset of mid back pain and diffuse chest pain. The patient's symptoms were sudden in onset. CT scan of the chest was unremarkable. However, the patient had some EKG changes that developed on the second EKG. This was concerning for ischemia. This in conjunction with a positive troponin was concerning for an NSTEMI. At this time, the patient is comfortable. I discussed the case with the [facility] Hospitalist and they will evaluate for further management. Medication Reconcilliation Current Medication List: was personally reviewed by me Blood Pressure Screening Patient's blood pressure: Normal blood pressure Blood pressure disposition: Did not require urgent referral Consults Time Called: 0110 Consulting Physician: Dr. Monet of the [facility] Hospitalist Service Returned Call: [address] Monet of the [facility] Hospitalist Service. The patient will be evaluated for further management and care. Impression Primary Impression: NSTEMI (non-ST elevated myocardial infarction) Scribe Attestation The scribe's documentation has been prepared under my direction and personally reviewed by me in its entirety. I confirm that the note above accurately reflects all work, treatment, procedures, and medical decision making performed by me. Departure Information Dispostion Being Evaluated By Hospitalist Referrals Azra Lowry C.R.N.P. (PCP) Patient Instructions My [facility]
[2017-06-26 23:41] LABS: ISTAT CREATININE 0.6 mg/dl (0.6-1.3); ISTAT IONIZED CALCIUM 1.14 mmol/l (1.12-1.32); ISTAT POTASSIUM 3.3 mEq/L (3.3-5.0)
[2017-06-26] MEDS ORDERED: HYDROmorphone INJ 0.5 MG/0.5 ML SYR IV STA (23:51)
[2017-06-26 23:58] LABS: ALBUMIN 4.4 gm/dl (3.4-5.0); ALT/SGPT 36 U/L (12-78); BLOOD UREA NITROGEN 13 mg/dl (7-18); CALCIUM 9.7 mg/dl (8.5-10.1); CARBON DIOXIDE 27 mmol/L (21-32); CREATININE 0.69 mg/dl (0.60-1.20); GLUCOSE 114 mg/dl (70-99); POTASSIUM 3.1 mmol/L (3.5-5.1); SODIUM 137 mmol/L (136-145)
[2017-06-27] VITALS (20 sets, daily range): BP systolic 67–148; BP diastolic 53–87; PULSE 63–111; TEMP 36.3–38.7; O2SAT 92–99; Ht 160 cm; Wt 54.3 kg
[2017-06-27] MEDS ORDERED: OPTIRAY 320 IV PRN
[2017-06-27 00:06] LABS: ALKALINE PHOSPHATASE 117 U/L (45-117); AST/SGOT 27 U/L (15-37); TOTAL PROTEIN 8.3 gm/dl (6.4-8.2)
[2017-06-27] MEDS ORDERED: ONDANSETRON INJ 2 MG/ML 2 ML VIAL IV STA (00:48)
[2017-06-27] MEDS ORDERED: ASPIRIN 81 MG CHEW PO STA (01:15)
[2017-06-27] MEDS ORDERED: HEPARIN 25000 UNIT/500 ML D5W ONE (01:27)
[2017-06-27] MEDS ORDERED: HEPARIN SOD 5000 UNIT/0.5 ML CARP ONE (01:31)
[2017-06-27 01:44] LABS: PTT PATIENT 26.5 SECONDS (21.0-31.0)
[2017-06-27] MEDS ORDERED: LORAZEPAM 0.5 MG TAB PO PRN (02:15)
[2017-06-27] MEDS ORDERED: PROMETHAZINE HCL 25 MG SUPP PR PRN (02:15)
[2017-06-27] MEDS ORDERED: POLYETHYLENE (MIRALAX) 17 GM PACK PO PRN (02:15)
[2017-06-27] MEDS ORDERED: MAGNESIUM HYDROXIDE SUSP 30 ML UDC PO PRN (02:15)
[2017-06-27] MEDS ORDERED: ALUMINUM/MAGNESIUM/SIMETH (MAALOX MAX) 30 ML UDC PO PRN (02:15)
[2017-06-27] MEDS ORDERED: ONDANSETRON INJ 2 MG/ML 2 ML VIAL IV PRN (02:15)
[2017-06-27] MEDS ORDERED: MoRPHine SULFATE 2 MG/ML CARP IV PRN (02:15)
--- NOTE | 2017-06-27 02:53 | History and Physical ---
History & Physical Date & Time of Service: Jun 27, 2017 at 01:19 Chief Complaint: Chest Pain, Back Pain Primary Care Physician: Azra Lowry C.R.N.P. History of Present Illness Source: patient, spouse 61 yo F with pMHx of HTN, sleep apnea and GERD presents to hospital with severe back pain this evening. The pain started in her neck while she was chatting with a friend. She originally attributed this to her migraine. Within minutes, it started in mid upper back, and subsequently wrapped around and was felt bilaterally across her upper chest. Patient denies heart racing, palpitations, dyspnea, lightheaded/dizziness, or diaphoresis. She is currently complaining of ongoing back pain that is less in severity, but continues to feel like a tightening medical dir, and some nausea. Patient denies PND, orthopnea, leg swelling, exacerbation of symptoms with movement or change in exercise tolerance. She has a history of GERD but states these symptoms are different. She has no personal cardiac history. She otherwise denies fevers/chills, current headaches, abdominal pain, vomiting, numbness or weakness. She has been voiding and stooling without issue. ROS is unremarkable except as noted above. Past Medical/Surgical History Medical Problems: Chronic headaches HTN Breast cancer s/p mastectomy, chemotherapy, and radiation Sleep apnea GERD Surgical Problems: (1) Ectopic (2) Hx of cholecystectomy (3) Hx of mastectomy (4) Ovarian cyst Family History Diabetes mellitus FH: lung disease FHx: cancer FHx: heart disease Hypertension Mother - HTN MGF - MS, CVA Social History Smoking Status: Never Smoker Smokeless Tobacco Use: No Alcohol Use: none Drug Use: none Marital Status: Housing status: lives with family Immunizations History of Influenza Vaccine: No History of Tetanus Vaccine?: No History of Pneumococcal: No History of Hepatitis B Vaccine: Unknown Allergies Coded Allergies: Butalbital (Verified Allergy, Severe, "resp. spasms", 06/27/17) codiene/butalbital/caffeine (not acetamin.) Caffeine (Verified Allergy, Severe, "resp. spasms", 06/27/17) Anastrozole (Unverified Allergy, Intermediate, no rash but intense itching , 06/27/17) Azithromycin (Unverified Allergy, Mild, RASH, 06/27/17) Lansoprazole (Unverified Allergy, Mild, rash, 06/27/17) Tramadol (Unverified Allergy, Mild, rash, 06/27/17) Apple (Verified Allergy, Unknown, RASH, 06/27/17) Pt only allergic to the apple skins. She is able to eat applesauce or a peeled apple safely. She does take Benadryl if she consumes the apple skin. Metronidazole (Verified Allergy, Unknown, ANAPHYLAXIS, 06/27/17) Adhesives (Verified Adverse Reaction, Mild, SKIN IRRITATION, 06/27/17) Letrozole (Unverified Adverse Reaction, Unknown, severe joint pain, ) Prochlorperazine (Unverified Adverse Reaction, Unknown, nausea, 06/27/17) Uncoded Allergies: UNCLAS THER/AG (Allergy, Unknown, ? INGREDIENT IN COUGH MEDICINE, 05/14/09) Home Medications Scheduled Lisinopril (Zestril), 10 MG PO DAILY Ranitidine (Zantac), 300 MG PO DAILY Scheduled PRN Lorazepam (Ativan), 0.5 MG PO HS PRN for Anxiety Promethazine Hcl (Phenergan Suppository), 25 MG MI UD PRN for Migraine Physical Exam Vital Signs Date Time Temp Pulse Resp B/P (MAP) Pulse Ox O2 Delivery O2 Flow Rate FiO2 06/27/17 00:49 89 16 121/93 92 Nasal Cannula 2.0 06/26/17 23:03 99 Room Air 06/26/17 22:57 99 06/26/17 22:46 85 16 177/131 99 Room Air General Appearance: WD/WN, no apparent distress, + pertinent finding ( supplemental O2 via NC) Head: normocephalic, atraumatic Eyes: normal inspection, sclerae normal ENT: hearing grossly normal, pharynx normal Neck: supple, no adenopathy, no JVD Respiratory/Chest: normal breath sounds, no respiratory distress, no accessory muscle use Cardiovascular: no edema, normal peripheral pulses, + tachycardia Abdomen/GI: normal bowel sounds, non tender, soft Back: normal inspection, no CVA tenderness, + pertinent finding (back pain not exacerbated with palpation) Extremities/Musculoskelatal: normal inspection, no calf tenderness Neurologic/Psych: alert, oriented x 3, + pertinent finding (anxious) Skin: normal color, warm/dry, no rash Diagnostics Laboratory Results Results Past 24 Hours Test 06/26/17 22:55 06/26/17 23:27 Range/Units White Blood Count 5.31 4.8-10.8 K/uL Red Blood Count 5.21 4.2-5.4 M/uL Hemoglobin 16.8 12.0-16.0 g/dL Hematocrit 49.0 37-47 % Mean Corpuscular Volume 94.0 80-100 fL Mean Corpuscular Hemoglobin 32.2 25-34 pg Mean Corpuscular Hemoglobin Concent 34.3 32-36 g/dl Platelet Count 266 130-400 K/uL Mean Platelet Volume 10.0 7.4-10.4 fL Neutrophils (%) (Auto) 50.5 % Lymphocytes (%) (Auto) 36.0 % Monocytes (%) (Auto) 9.2 % Eosinophils (%) (Auto) 3.2 % Basophils (%) (Auto) 0.9 % Neutrophils # (Auto) 2.68 1.4-6.5 K/uL Lymphocytes # (Auto) 1.91 1.2-3.4 K/uL Monocytes # (Auto) 0.49 0.11-0.59 K/uL Eosinophils # (Auto) 0.17 0-0.5 K/uL Basophils # (Auto) 0.05 0-0.2 K/uL RDW Standard Deviation 44.1 36.4-46.3 fL RDW Coefficient of Variation 12.8 11.5-14.5 % Immature Granulocyte % (Auto) 0.2 % Immature Granulocyte # (Auto) 0.01 0.00-0.02 K/uL Sodium Level 137 136-145 mmol/L Potassium Level 3.1 3.5-5.1 mmol/L Chloride Level 102 98-107 mmol/L Carbon Dioxide Level 27 21-32 mmol/L Anion Gap 8.0 15.0 16-25 mmol/L Blood Urea Nitrogen 13 7-18 mg/dl Creatinine 0.69 0.60-1.20 mg/dl Est Creatinine Clear Calc Drug Dose 62.7 ml/min Estimated GFR () 108.1 Estimated GFR (Non- 93.3 BUN/Creatinine Ratio 18.3 10-20 Random Glucose 114 70-99 mg/dl Calcium Level 9.7 8.5-10.1 mg/dl Total Bilirubin 0.5 0.2-1 mg/dl Direct Bilirubin < 0.1 0-0.2 mg/dl Aspartate Amino Transf (AST/SGOT) 27 15-37 U/L Alanine Aminotransferase (ALT/SGPT) 36 12-78 U/L Alkaline Phosphatase 117 45-117 U/L Troponin I 0.586 0-0.045 ng/ml Pro-B-Type Natriuretic Peptide 99 0-900 pg/ml Total Protein 8.3 6.4-8.2 gm/dl Albumin 4.4 3.4-5.0 gm/dl Bedside Hemoglobin 16.3 12.0-16.0 g/dl Bedside Hematocrit 48 37-47 % Bedside Sodium 139 135-144 mEq/L Bedside Potassium 3.3 3.3-5.0 mEq/L Bedside Chloride 103 101-112 mEq/L Bedside Total CO2 26 24-31 mEq/l Bedside Blood Urea Nitrogen 13 7-18 mg/dl Bedside Creatinine 0.6 0.6-1.3 mg/dl Bedside Glucose (other) 124 70-99 mg/dl Bedside Ionized Calcium (Ines) 1.14 1.12-1.32 mmol/l Impression Assessment and Plan 61 yo F with pMHx of HTN, sleep apnea and GERD presents to hospital with severe back pain this evening. The pain started in her neck while she was chatting with a friend. She originally attributed this to her migraine. Within minutes, it started in mid upper back, and subsequently wrapped around and was felt bilaterally across her upper chest. Patient denies heart racing, palpitations, dyspnea, lightheaded/dizziness, or diaphoresis. She is currently complaining of ongoing back pain that is less in severity, but continues to feel like a tightening medical dir, and some nausea. Patient denies PND, orthopnea, leg swelling, exacerbation of symptoms with movement or change in exercise tolerance. She has a history of GERD but states these symptoms are different. She has no personal cardiac history. She otherwise denies fevers/chills, current headaches, abdominal pain, vomiting, numbness or weakness. She has been voiding and stooling without issue. CP with elevated troponin and EKG changes (T wave inversions) - Stat rad CT negative for dissection. Await final report - Cardiology consulted - Serial troponin - Echo ordered - Aspirin started - Heparin drip started - NPO for now. When ordering diet post cardiology eval, patient requesting low salt - EKG PRN CP - Morphine PRN CP. Patient does not tolerate nitro, has had syncope with it previously Hypokalemia - 3.1 on admission - Supplemented with KCl, trend BMP HTN - Continue lisinopril GERD - Continue ranitidine Sleep apnea - CPAP ordered Anxiety - Continue lorazepam PRN VTE ppx - Heparin drip - SCDs FULL CODE Attending addendum: I have physically seen this patient, have supervised the medical residents activities, and agree with the H&P unless as otherwise noted. Assessment and Plan: NSTEMI/precordial chest pain/dynamic EKG changes-- The patient will be admitted to telemetry for serial cardiac enzymes, serial EKG's, cardiac rhythm monitoring and a 2-D echocardiogram with Dopplers. Aspirin, Nitropaste and heparin drip. Consult cardiology. Hypertension/hypokalemia-- Replace with oral potassium. Magnesium level is normal. Continue lisinopril with hold parameters. Repeat laboratories in the a.m. Sleep apnea-- Continue CPAP at at bedtime. GERD-- Continue ranitidine. Advanced Directives Existing Advance Directive: Yes Existing Living Will: Yes Existing Power of Story Editor: Yes Existing Health Care Proxy: Yes ( Juanjo) Resuscitation Status Full code VTE Prophylaxis Will order VTE Prophylaxis: Yes Social Service Consult None Apply Resident Tracking Resident Involvement: Resident Care Provided Care Provided: Adult Hospital Medicine
[2017-06-27] MEDS ORDERED: IV FLUIDS COMPLETED PRN (03:00)
[2017-06-27] MEDS ORDERED: SODIUM CHLORIDE 0.9% 500ML 500 ML IV STA (03:06)
[2017-06-27] MEDS ORDERED: POTASSIUM CHLORIDE 20 MEQ TABCR PO STA (03:10)
[2017-06-27] MEDS ORDERED: PROMETHAZINE HCL INJ 25 MG in SODIUM CHLORIDE 0.9% 50ML 50 ML IV STA (04:46)
[2017-06-27] MEDS ORDERED: LORAZEPAM 2 MG/ML 1 ML VIAL IV STA (04:46)
[2017-06-27] MEDS ORDERED: LORAZEPAM 2 MG/ML 1 ML VIAL ONE (04:49)
[2017-06-27] MEDS: HEPARIN 25,000 UNIT/500ML D5W 500 ML IV SCH ×2 (05:15→09:06)
[2017-06-27 05:32] LABS: BASO % 0.1 %; BASO ABS # 0.01 K/uL (0-0.2); EOS % 0.1 %; EOS ABS # 0.01 K/uL (0-0.5); HEMATOCRIT 47.7 % (37-47); HEMOGLOBIN 16.1 g/dL (12.0-16.0); IG# 0.02 K/uL (0.00-0.02); LYMPH % 6.1 %; LYMPH ABS # 0.61 K/uL (1.2-3.4); MEAN CELL VOLUME 93.7 fL (80-100); MEAN CORPUSCULAR HEMOGLOBIN 31.6 pg (25-34); MEAN CORPUSCULAR HGB CONC 33.8 g/dl (32-36); MEAN PLATELET VOLUME 9.7 fL (7.4-10.4); MONO % 4.5 %; MONO ABS # 0.45 K/uL (0.11-0.59); PLATELET COUNT 210 K/uL (130-400); RED CELL DISTRIBUTION WIDTH CV 12.8 % (11.5-14.5); RED CELL DISTRIBUTION WIDTH SD 44.2 fL (36.4-46.3)
[2017-06-27 06:10] LABS: CALCIUM 8.4 mg/dl (8.5-10.1); CREATININE 0.64 mg/dl (0.60-1.20); POTASSIUM 3.6 mmol/L (3.5-5.1)
[2017-06-27] MEDS ORDERED: NURSING VERBAL MED ORDER ONE ×4 (06:45→15:15)
[2017-06-27] MEDS ORDERED: NSS + 20MEQ KCL 1000ML 1,000 ML IV SCH (06:45)
--- NOTE | 2017-06-27 07:07 | DIAGNOSTIC IMAGING REPORT ---
CT ANGIOGRAPHY THE CHEST WITHOUT A WITH CONTRAST CLINICAL HISTORY: Atypical chest pain. Possible thoracic aortic dissection. COMPARISON STUDY: Chest x-ray dated 06/26/2017 FINDINGS: The patient was scanned utilizing a dose reduction technique adhering to the principles of ALARA. Unenhanced images were initially obtained through the thorax. The patient was then scanned in a dynamic helical fashion during intravenous administration of 92 cc of Optiray 320. MIP imaging was performed. Unenhanced images reveal no evidence of acute aortic hematoma. Postcontrast images reveal no evidence of thoracic aortic aneurysm or dissection. There are no pathologically enlarged axillary, mediastinal, or hilar lymph nodes. The left breast is surgically absent. There is no pneumothorax. There are no significant pleural effusions. There are mild dependent atelectatic changes. There is mild septal edema. IMPRESSION: 1. No evidence of thoracic aortic aneurysm or dissection 2. Lower lung zone septal edema, suggesting pulmonary edema/fluid overload. Electronically signed by: Santiago Chin M.D. 06/27/2017 7:05 AM Dictated Date/Time: 06/27/2017 7:01 AM
--- NOTE | 2017-06-27 07:15 | DIAGNOSTIC IMAGING REPORT ---
CHEST ONE VIEW PORTABLE CLINICAL HISTORY: NSTEMI, ALTERED MENTAL STATUS COMPARISON STUDY: 06/26/2017 FINDINGS: The heart is normal in size. There is aortic tortuosity. There is evidence for interstitial edema. Surgical clips are present within the left axillary region. There is no lobar consolidation.[ IMPRESSION: Interstitial pulmonary edema. No evidence of lobar consolidation. Electronically signed by: Santiago Chin M.D. 06/27/2017 7:14 AM Dictated Date/Time: 06/27/2017 7:13 AM
--- NOTE | 2017-06-27 07:40 | DIAGNOSTIC IMAGING REPORT ---
CHEST ONE VIEW PORTABLE CLINICAL HISTORY: Myocardial infarction. Altered mental status. COMPARISON STUDY: 06/26/2017 FINDINGS: The cardiac and mediastinal contours remain stable. There is subtle interstitial edema. There is no focal pulmonary consolidation. There are no significant pleural effusions.[ IMPRESSION: Subtle interstitial edema. No evidence of focal pulmonary consolidation Electronically signed by: Santiago Chin M.D. 06/27/2017 7:39 AM Dictated Date/Time: 06/27/2017 7:38 AM
[2017-06-27 07:51] LABS: PTT PATIENT 36.8 SECONDS (21.0-31.0)
[2017-06-27] MEDS: POTASSIUM CHLORIDE 20 MEQ TABCR PO SCH (08:49)
[2017-06-27] MEDS: ASPIRIN 81 MG ECTAB PO SCH (08:49)
[2017-06-27] MEDS: RANITIDINE HCL 150 MG TAB PO SCH (08:49)
[2017-06-27] MEDS ORDERED: LISINOPRIL 10 MG TAB PO SCH (09:00)
[2017-06-27] MEDS ORDERED: HEPARIN IV BOLUS 4,000 UNIT in SYRINGE 0 ML IV ONE (09:00)
--- NOTE | 2017-06-27 10:06 | ECHOCARDIOGRAM REPORT ---
*NOTICE TO RECEIVING LIBERTARIAN AGENCY This information is strictly Confidential and protected under [place] law. [place] law prohibits you from making any further disclosure of this information unless further disclosure is expressly permitted by the written consent of the person to whom it pertains or is authorized by law. A general authorization for the release of medical or other information is not sufficient for this purpose. Hospital accepts no responsibility if the information is made available to any other person, INCLUDING THE PATIENT. Interpretation Summary * Name: CHRISTINA MEEKS Study Date: 06/27/2017 07:18 AM BP: 67/53 mmHg * Patient Location: C.2T\S\S238\S\2 HR: 85 * : 1955 (M/d/yyyy) Gender: Female Height: 63 in * Age: 61 yrs Ethnicity: CA Weight: 103 lb * Ordering Physician: Ayana Pacheco. * Referring Physician: Self, Referred * Performed By: Amy Grady, [facility] * * Reason For Study: CHEST PAIN / NSTEMI / ELEVATED TROPONIN * BSA: 1.5 m2 * -- Conclusions -- * The left ventricle is mildly dilated. * Left ventricular systolic function is severely reduced. * Ejection Fraction = 20-25%. * The mid to distal xochitl septum, septum, mid to distal anterior wall , mid to distal lateral, distal half of the inferior wall and apex are thin and akinetic. * No evidence of LV thrombus. * Reduced stroke volume at 45 cc. * The right ventricle is normal in size and function. * Right ventricular systolic pressure is normal. * Grade I diastolic dysfunction, (abnormal relaxation pattern). Procedure Details * A complete two-dimensional transthoracic echocardiogram was performed (2D, M-mode, Doppler and color flow Doppler). Left Ventricle * The left ventricle is mildly dilated. * There is normal left ventricular wall thickness. * Left ventricular systolic function is severely reduced. * Ejection Fraction = 20-25%. * The mid to distal xochitl septum, septum, mid to distal anterior wall , mid to distal lateral, distal half of the inferior wall and apex are thin and akinetic. No evidence of LV thrombus. Reduced stroke volume at 45 cc. Right Ventricle * The right ventricle is normal in size and function. Atria * The left atrium is mildly dilated. * Right atrial size is normal. Mitral Valve * The mitral valve is grossly normal. * There is mild mitral regurgitation. Tricuspid Valve * The tricuspid valve is not well visualized, but is grossly normal. * There is mild tricuspid regurgitation. * Right ventricular systolic pressure is normal. Aortic Valve * The aortic valve is tricuspid. The leaflet thickness if normal. There is no aortic stenosis, and no significant insufficiency. * Mild aortic regurgitation. Pulmonic Valve * The pulmonic valve is not well seen, but is grossly normal. Great Vessels * The aortic root is normal size. Pericardium/Pleural * There is no pericardial effusion. Great Vessels * Normal inferior vena cava size and collapsability with sniff indicates a normal right atrial pressure of 3 mmHg Left Ventricular Diastolic Function * Grade I diastolic dysfunction, (abnormal relaxation pattern). MMode 2D Measurements and Calculations IVSd 0.60 cm IVSs 1.0 cm LVIDd 4.9 cm LVIDs 4.5 cm LVPWd 1.1 cm LVPWs 0.96 cm IVS/LVPW 0.54 FS 7.9 % EDV(Teich) 110.8 ml ESV(Teich) 91.4 ml EF(Teich) 17.5 % EDV(cubed) 115.0 ml ESV(cubed) 89.8 ml EF(cubed) 21.9 % % IVS thick 68.3 % % LVPW thick -12.61 % LV mass(C)d 139.6 grams LV mass(C)dI 95.7 grams/m\S\2 LV mass(C)s 148.3 grams LV mass(C)sI 101.7 grams/m\S\2 SV(Teich) 19.4 ml SI(Teich) 13.3 ml/m\S\2 SV(cubed) 25.2 ml SI(cubed) 17.3 ml/m\S\2 Ao root diam 2.5 cm Ao root area 4.9 cm\S\2 ACS 1.6 cm LA dimension 2.9 cm LA/Ao 1.2 LVOT diam 1.9 cm LVOT area 2.8 cm\S\2 LVAd ap4 27.2 cm\S\2 LVLd ap4 7.5 cm EDV(MOD-sp4) 81.8 ml EDV(sp4-el) 84.1 ml LVAs ap4 20.6 cm\S\2 LVLs ap4 7.3 cm ESV(MOD-sp4) 48.6 ml ESV(sp4-el) 49.8 ml EF(MOD-sp4) 40.6 % EF(sp4-el) 40.8 % LVAd ap2 31.8 cm\S\2 LVLd ap2 7.6 cm EDV(MOD-sp2) 107.9 ml EDV(sp2-el) 113.6 ml LVAs ap2 24.2 cm\S\2 LVLs ap2 6.7 cm ESV(MOD-sp2) 71.0 ml ESV(sp2-el) 74.8 ml EF(MOD-sp2) 34.3 % EF(sp2-el) 34.2 % LVLd %diff 1.1 % EDV(MOD-bp) 94.5 ml LVLs %diff -8.81 % ESV(MOD-bp) 57.5 ml EF(MOD-bp) 39.2 % SV(MOD-sp4) 33.2 ml SI(MOD-sp4) 22.8 ml/m\S\2 SV(MOD-sp2) 37.0 ml SI(MOD-sp2) 25.3 ml/m\S\2 SV(MOD-bp) 37.0 ml SI(MOD-bp) 25.4 ml/m\S\2 SV(sp4-el) 34.3 ml SI(sp4-el) 23.5 ml/m\S\2 SV(sp2-el) 38.8 ml SI(sp2-el) 26.6 ml/m\S\2 Doppler Measurements and Calculations MV E max spring 77.1 cm/sec MV A max spring 89.0 cm/sec MV E/A 0.87 MV P1/2t max spring 86.3 cm/sec MV P1/2t 47.9 msec MVA(P1/2t) 4.6 cm\S\2 MV dec slope 527.1 cm/sec\S\2 MV dec time 0.22 sec Ao V2 max 112.2 cm/sec Ao max PG 5.0 mmHg Ao max PG (full) 2.3 mmHg JOSE(V,A) 2.1 cm\S\2 JOSE(V,D) 2.1 cm\S\2 AI max spring 258.8 cm/sec AI max PG 26.8 mmHg AI dec slope 102.1 cm/sec\S\2 AI P1/2t 742.8 msec LV V1 max PG 2.8 mmHg LV V1 mean PG 1.6 mmHg LV V1 max 83.0 cm/sec LV V1 mean 57.7 cm/sec LV V1 VTI 14.2 cm SV(LVOT) 39.5 ml SI(LVOT) 27.1 ml/m\S\2 PA V2 max 65.6 cm/sec PA max PG 1.7 mmHg TR max spring 231.2 cm/sec
[2017-06-27] MEDS ORDERED: FUROSEMIDE 40 MG/4 ML VIAL ONE (10:39)
[2017-06-27] MEDS ORDERED: FUROSEMIDE INJ 10 MG in SYRINGE 0 ML IV ONE (10:45)
[2017-06-27] MEDS ORDERED: FUROSEMIDE 40 MG/4 ML VIAL IV ONE (11:00)
[2017-06-27] MEDS ORDERED: LIDOCAINE HCL 1% 20 ML VIAL ONE (11:06)
--- NOTE | 2017-06-27 11:18 | Pre Sedation Assessment ---
Pre Sedation Assessment General Date of Sedation: Jun 27, 2017. Vital Signs Past 12 Hours Date Time Temp Pulse Resp B/P (MAP) Pulse Ox O2 Delivery O2 Flow Rate FiO2 06/27/17 10:32 99 16 110/78 (89) 98 3.0 06/27/17 10:19 114/87 (96) Nasal Cannula 2.0 06/27/17 08:06 36.5 111/82 (92) 06/27/17 08:00 Nasal Cannula 2.0 06/27/17 07:44 38.7 91 24 96/72 (80) 95 Nasal Cannula 3.0 06/27/17 05:16 36.3 63 22 67/53 92 Nasal Cannula 2.0 06/27/17 02:25 96 18 121/94 92 Room Air 06/27/17 02:11 103 06/27/17 00:49 89 16 121/93 92 Nasal Cannula 2.0 Review Cardiovascular: regular rate, rhythm, no edema Lungs: chest non-tender, lungs clear Pre-Sedation Airway Assessment Smoking Status: Never Smoker Hx of Sleep Apnea: No Hx of difficult intubation: No Short Thick Neck: No Thyro-mental Distance: > 3 Finger Breadths Oral Cavity: WNL Mallampati Classification: Class II ASA Classification: Class III Procedure Planning Contraindications for Sedation: None Current Medications Reviewed: Yes Notes The planned sedation has been discussed with the patient. Informed Consent was obtained. I have identified the patient, determined the appropriateness of sedation and have assessed the patient immediately prior to the procedure. All medicine(s) and interventions are by my order.
[2017-06-27] MEDS ORDERED: MIDAZOLAM HCL 1 MG/ML 2ML VIAL ONE (11:34)
[2017-06-27] MEDS ORDERED: FENTANYL CITRATE INJ 50 MCG/1 ML 2 ML VIAL ONE (11:34)
--- NOTE | 2017-06-27 11:34 | Family Medicine Progress Note ---
Progress Note Date of Service Jun 27, 2017. Subjective Pt evaluation today including: conversation w/ patient, conversation w/ family , physical exam, chart review, lab review Pain: well controlled PO Intake: npo 61-year-old female with past medical history of hypertension, sleep apnea, GERD , breast cancer status post chemo and radiation, chronic headaches presented with chest pain that started yesterday while at rest. Denies any difficulty breathing, palpitations, dizziness lightheadedness, nausea, vomiting, diaphoresis with the chest pain. Was found to have ST and T wave changes in EKG with a bump in her troponin to 6 from 0.5. Currently denies any chest pain, Shortness of breath, palpitations. Constitutional: No fever, No chills Eyes: No worsening of vision ENT: No hearing loss Respiratory: No cough, No sputum, No wheezing, No shortness of breath Cardiovascular: + chest pain, + problem reported, No palpitations Abdomen: No pain, No nausea, No vomiting, No diarrhea Musculoskeletal: No joint pain Female : No dysuria Psychiatric: No depression symptoms Heme: No abnormal bleeding/bruising Medications Current Inpatient Medications Medications (Trade) Dose Ordered Sig/Liang Route Start Time Stop Time Status Last Admin Dose Admin Ioversol (Optiray 320) 100 ml UD PRN IV 06/27/17 00:00 07/01/17 00:00 Acetaminophen (Tylenol Tab) 650 mg Q4H PRN PO 06/27/17 02:15 07/27/17 02:14 Al Hydrox/Mg Hydrox/Simethicone (Maalox Max Susp) 15 ml Q4H PRN PO 06/27/17 02:15 07/27/17 02:14 Magnesium Hydroxide (Milk Of Magnesia Susp) 30 ml Q12H PRN PO 06/27/17 02:15 07/27/17 02:14 Ondansetron HCl (Zofran Inj) 4 mg Q6H PRN IV 06/27/17 02:15 07/27/17 02:14 06/27/17 09:38 4 MG Morphine Sulfate (MoRPHine SULFATE INJ) 2 mg Q30M PRN IV 06/27/17 02:15 07/11/17 02:14 06/27/17 03:34 2 MG Aspirin (Ecotrin Tab) 81 mg QAM PO 06/27/17 09:00 07/27/17 08:59 3/21/18 08:49 81 MG Polyethylene (Miralax Powder Packet) 17 gm DAILY PRN PO 06/27/17 02:15 07/27/17 02:14 Lorazepam (Ativan Tab) 0.5 mg HS PRN PO 06/27/17 02:15 07/27/17 02:14 Promethazine HCl (Phenergan Supp) 25 mg DAILY PRN NV 06/27/17 02:15 07/27/17 02:14 Ranitidine HCl (zANTac TAB) 300 mg DAILY PO 06/27/17 09:00 07/27/17 08:59 06/27/17 08:49 300 MG Miscellaneous (Iv Fluids Completed) 1 ea PRN PRN N/A 06/27/17 03:00 06/27/18 02:59 Potassium Chloride (Klor-Con Tab) 20 meq QAM PO 06/27/17 09:00 06/29/17 09:01 06/27/17 08:49 20 MEQ Heparin Sodium/ Dextrose 500 ml @ 21 mls/hr [id number] IV 06/27/17 05:15 07/27/17 05:14 06/27/17 09:06 21 MLS/HR Objective Vital Signs Date Time Temp Pulse Resp B/P (MAP) Pulse Ox O2 Delivery O2 Flow Rate FiO2 06/27/17 10:32 99 16 110/78 (89) 98 3.0 06/27/17 10:19 114/87 (96) Nasal Cannula 2.0 06/27/17 08:06 36.5 111/82 (92) 06/27/17 08:00 Nasal Cannula 2.0 06/27/17 07:44 38.7 91 24 96/72 (80) 95 Nasal Cannula 3.0 06/27/17 05:16 36.3 63 22 67/53 92 Nasal Cannula 2.0 06/27/17 02:25 96 18 121/94 92 Room Air 06/27/17 02:11 103 06/27/17 00:49 89 16 121/93 92 Nasal Cannula 2.0 06/26/17 23:03 99 Room Air 06/26/17 22:57 99 06/26/17 22:46 85 16 177/131 99 Room Air Physical Exam General Appearance: WD/WN, no apparent distress Eyes: normal inspection ENT: hearing grossly normal Neck: supple Respiratory/Chest: no respiratory distress, + crackles Cardiovascular: regular rate, rhythm Abdomen: normal bowel sounds, non tender, soft Extremities: no pedal edema, no calf tenderness Neurologic/Psychiatric: alert, normal mood/affect, oriented x 3 Laboratory Results 06/27/17 05:17 Red Blood Count 5.09, Mean Corpuscular Volume 93.7, Mean Corpuscular Hemoglobin 31.6, Mean Corpuscular Hemoglobin Concent 33.8, Mean Platelet Volume 9.7, Neutrophils (%) (Auto) 89.0, Lymphocytes (%) (Auto) 6.1, Monocytes (%) (Auto) 4.5, Eosinophils (%) (Auto) 0.1, Basophils (%) (Auto) 0.1, Neutrophils # (Auto) 8.90, Lymphocytes # (Auto) 0.61, Monocytes # (Auto) 0.45, Eosinophils # (Auto) 0.01, Basophils # (Auto) 0.01 06/27/17 05:17 Test 06/26/17 22:55 06/26/17 23:27 06/27/17 05:17 06/27/17 07:32 Prothrombin Time 10.0 SECONDS (9.0-12.0) Prothromb Time International Ratio 1.0 (0.9-1.1) Magnesium Level 2.3 mg/dl (1.8-2.4) Total Bilirubin 0.5 mg/dl (0.2-1) Direct Bilirubin < 0.1 mg/dl (0-0.2) Aspartate Amino Transf (AST/SGOT) 27 U/L (15-37) Alanine Aminotransferase (ALT/SGPT) 36 U/L (12-78) Alkaline Phosphatase 117 U/L (45-117) Pro-B-Type Natriuretic Peptide 99 pg/ml (0-900) Total Protein 8.3 gm/dl (6.4-8.2) Albumin 4.4 gm/dl (3.4-5.0) Bedside Hemoglobin 16.3 g/dl (12.0-16.0) Bedside Hematocrit 48 % (37-47) Bedside Sodium 139 mEq/L (135-144) Bedside Potassium 3.3 mEq/L (3.3-5.0) Bedside Chloride 103 mEq/L (101-112) Bedside Total CO2 26 mEq/l (24-31) Bedside Blood Urea Nitrogen 13 mg/dl (7-18) Bedside Creatinine 0.6 mg/dl (0.6-1.3) Bedside Glucose (other) 124 mg/dl (70-99) Bedside Ionized Calcium (Ines) 1.14 mmol/l (1.12-1.32) White Blood Count 10.00 K/uL (4.8-10.8) Red Blood Count 5.09 M/uL (4.2-5.4) Hemoglobin 16.1 g/dL (12.0-16.0) Hematocrit 47.7 % (37-47) Mean Corpuscular Volume 93.7 fL (80-100) Mean Corpuscular Hemoglobin 31.6 pg (25-34) Mean Corpuscular Hemoglobin Concent 33.8 g/dl (32-36) Platelet Count 210 K/uL (130-400) Mean Platelet Volume 9.7 fL (7.4-10.4) Neutrophils (%) (Auto) 89.0 % Lymphocytes (%) (Auto) 6.1 % Monocytes (%) (Auto) 4.5 % Eosinophils (%) (Auto) 0.1 % Basophils (%) (Auto) 0.1 % Neutrophils # (Auto) 8.90 K/uL (1.4-6.5) Lymphocytes # (Auto) 0.61 K/uL (1.2-3.4) Monocytes # (Auto) 0.45 K/uL (0.11-0.59) Eosinophils # (Auto) 0.01 K/uL (0-0.5) Basophils # (Auto) 0.01 K/uL (0-0.2) RDW Standard Deviation 44.2 fL (36.4-46.3) RDW Coefficient of Variation 12.8 % (11.5-14.5) Immature Granulocyte % (Auto) 0.2 % Immature Granulocyte # (Auto) 0.02 K/uL (0.00-0.02) Anion Gap 10.0 mmol/L (3-11) Est Creatinine Clear Calc Drug Dose 67.6 ml/min Estimated GFR () 110.8 Estimated GFR (Non- 95.6 BUN/Creatinine Ratio 17.9 (10-20) Calcium Level 8.4 mg/dl (8.5-10.1) Activated Partial Thromboplast Time 36.8 SECONDS (21.0-31.0) Partial Thromboplastin Ratio 1.4 Test 06/27/17 11:00 Assessment and Plan 61-year-old female with past medical history of hypertension, sleep apnea, GERD , breast cancer status post chemo and radiation, chronic headaches presented with chest pain that started yesterday while at rest. Denies any difficulty breathing, palpitations, dizziness lightheadedness, nausea, vomiting, diaphoresis with the chest pain NSTEMI : likely sec to takotsubo CM/nonischemic CM - EKG with ST/T-wave changes -Troponins trended every 6 hours, 0.5->6 -Continue heparin drip, nitro, morphine as needed -Cardiology consulted - Cardiac catheterization angiographically normal -Echo : The left ventricle is mildly dilated. * Left ventricular systolic function is severely reduced. * Ejection Fraction = 20-25%. * The mid to distal xochitl septum, septum, mid to distal anterior wall , mid to distal lateral, distal half of the inferior wall and apex are thin and akinetic. * No evidence of LV thrombus. * Reduced stroke volume at 45 cc. * The right ventricle is normal in size and function. * Right ventricular systolic pressure is normal. * Grade I diastolic dysfunction, (abnormal relaxation pattern). Hypokalemia -K was 3.1 on admission, repleted -Currently K at3.6, monitor BMP HTN - Continue lisinopril GERD - Continue ranitidine Sleep apnea - CPAP ordered Anxiety - Continue lorazepam PRN DVT prophylaxis - Heparin drip - SCDs FULL CODE Disposition : monitor in telemetry Resident Physician Supervision Note: I interviewed and examined the patient. Discussed with Dr. Santos and agree with findings and plan as documented in the note. Any exceptions or clarifications are listed here: None Documented By: Hunter Rushing feeling better than before cath reviewed, presumptive dx reviewed pt admits to a lot of stress lately - more than even when she was going through cancer vitals noted nad breathing unlabored no pallor or icterus chest pain/elevated troponin/nonischemic cardiomyopathy presumably takutsobo's with secondary acute pulmonary edema/stress -med management low Na -stress management -hopefully home tomorrow if ongoing improvement Resident Tracking Resident Involvement: Resident Care Provided Care Provided: Adult [facility] Medicine
[2017-06-27] MEDS ORDERED: HEPARIN SOD (PORCINE) 1000 UNIT/ML 10 ML VIAL ONE (11:35)
[2017-06-27] MEDS ORDERED: NiCARDipine HCL INJ 2.5 MG/ML 10 ML AMP ONE (11:35)
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
[2017-06-27] MEDS ORDERED: NITROGLYCERIN/D5W 100MCG/ML 20ML SYR ONE (12:22)
--- NOTE | 2017-06-27 12:27 | Cardiac Catheterization ---
Procedure Note Procedure Date Jun 27, 2017. Pre-Procedure Diagnosis Non STEMI AUC Score 8 Post-Procedure Diagnosis Normal Coronary Arteries, Normal Intracardiac Pressures Procedure(s) Performed Coronary Angiography, Left Heart Cath, Right Heart Cath Geological E Logger Tile Machine Operator(s) Eleazar Estimated Blood Loss 10 Medication(s) Fentanyl, Heparin, Nitroglycerin, Versed, Lidocaine 1% Summary of Findings Indication: High-risk NSTEMI, new severe LV dysfunction with LAD distribution wall motion abnormality, Acute systolic heart failure Access: 6Fr slender right radial artery; 7Fr right CFV (ultrasound guided access ). Catheters: [place]; 7Fr swan Findings: LM - Angiographically normal LAD - Angiographically normal Circumflex - Angiographically normal RCA - Angiographically normal RA 3 RV 19/2 PA 19/6 (12) PAWP (8) LVEDP 4 PaSat 63% AoSat 93% Thermo CO/CI 4.0/2.7 Arterial Closure: TR Band Summary: 1. Angiographically normal coronary artery disease 2. Normal intracardiac filling pressures 3. Preserved cardiac output 4. Non-ischemic cardiomyopathy (? Takotsubo's) Recommendations: Guideline directed medical therapy for NICM per Dr. Mosley Can discontinue heparin infusion. Hemodynamics Rest Ao: 80/61/71 Final Ao: 87/65/76 LV: 94/3 Recommendations Medical therapy and/or Counseling Specimens None Radiation Exposure (mGy) 552 Contrast (mls) 40 Fluids (cc crystalloids) 70 Drains None Anesthesia Moderate Procedural Complication(s) None Disposition PCU ACC Data Cardiac Status Clinical evaluation leading to the procedure CAD Presntation: Non STEMI Anginal Classification: CCS IV Heart Failure: NYHA Class: CCS IV Cardiogenic Shock w/in 24Hrs: No Cardiac Arrest w/in 24Hrs: No Imaging studies past 6 months: Yes Stress studies past 6 months: No Closure Device Percutaneous Entry Location: Radial Closure Device: Radial Band Recommendations: Medical therapy and/or Counseling Intraprocedure Events Significant Dissection: No Perforation: No
--- NOTE | 2017-06-27 12:27 | Post Sedation Assessment ---
Post Sedation Assessment General Date of Sedation Jun 27, 2017. Vital Signs: Vital Signs Past 12 Hours Date Time Temp Pulse Resp B/P (MAP) Pulse Ox O2 Delivery O2 Flow Rate FiO2 06/27/17 12:14 115 18 112/64 (80) 95 Room Air 06/27/17 12:07 110 18 113/65 (81) 95 Room Air 06/27/17 10:32 99 16 110/78 (89) 98 3.0 06/27/17 10:19 114/87 (96) Nasal Cannula 2.0 06/27/17 08:06 36.5 111/82 (92) 06/27/17 08:00 Nasal Cannula 2.0 06/27/17 07:44 38.7 91 24 96/72 (80) 95 Nasal Cannula 3.0 06/27/17 05:16 36.3 63 22 67/53 92 Nasal Cannula 2.0 06/27/17 02:25 96 18 121/94 92 Room Air 06/27/17 02:11 103 06/27/17 00:49 89 16 121/93 92 Nasal Cannula 2.0 Post Procedure Recovery Score Activity: (2) Moves 4 extremities * Respiration: (2) Deep breath/cough Circulation: (2) +/-20% PreAnes Value Consciousness: (2) Fully Awake Oxygen Saturation: (2) > 92% On Room Air Post Anesthesia Score: 10 Discharge Sedation Level of Care: Fast Track Phase II Post Sedation Plan On clinical assessment, the patient appears to have tolerated the sedation without complications. Patient is recovering as anticipated. Patient will continue to be monitored by nursing and may be discharged when sedation discharge criteria are met per below protocol. Upon Completions of procedure and additional 15 minutes continue every 5 minute vital signs and the P.A.R. score; then discharge to a Phase I or Fast Track to Phase II per the following guidelines: * Discharge Patient to appropriate Phase II area if PAR is 8 or greater or return to pre- procedure baseline. The post - procedure orders will be as directed. * If PAR score is less than 8 or not return to pre-procedure baseline then patient will follow Phase I monitoring till PAR is reached for Phase II. The Phase I may be done in procedure room or may call to secure a Phase I area. * If naloxone or flumazenil are used for reversal, hold in Phase I for an additional 60 -120 minutes before discharge to Phase II. Please call the Sedation Physician to re-evaluate and complete post-note for discharge to Phase II area. Do NOT discharge from procedure sedation or Phase 1 until post- sedation evaluation note is complete by procedure /sedation MD Sedation Discharge Instructions to be given to the patient at discharge to home.
[2017-06-27] MEDS ORDERED: SODIUM CHLORIDE 0.9% 1000ML 1,000 ML IV SCH (12:28)
[2017-06-27] MEDS ORDERED: METOPROLOL TARTRATE 25 MG TAB PO ONE (15:30)
[2017-06-28] VITALS (9 sets, daily range): BP systolic 92–118; BP diastolic 60–81; PULSE 70–79; TEMP 36.6–37.4; O2SAT 91–98
[2017-06-28] MEDS: ASPIRIN 81 MG ECTAB PO SCH (08:26)
[2017-06-28] MEDS: RANITIDINE HCL 150 MG TAB PO SCH (08:26)
[2017-06-28] MEDS: POTASSIUM CHLORIDE 20 MEQ TABCR PO SCH (08:26)
--- NOTE | 2017-06-28 09:29 | Cardiology Follow-Up ---
Subjective General Date of Service: Jun 28, 2017. Pt evaluation today including: conversation w/ patient, conversation w/ family , physical exam, chart review, lab review, review of studies, conversation w/ relationship consultant History of Present Illness The patient is a 61 year old female Allergies Coded Allergies: Butalbital (Verified Allergy, Severe, "resp. spasms", 06/27/17) codiene/butalbital/caffeine (not acetamin.) Caffeine (Verified Allergy, Severe, "resp. spasms", 06/27/17) Anastrozole (Unverified Allergy, Intermediate, no rash but intense itching , 06/27/17) Azithromycin (Unverified Allergy, Mild, RASH, 06/27/17) Lansoprazole (Unverified Allergy, Mild, rash, 06/27/17) Tramadol (Unverified Allergy, Mild, rash, 06/27/17) Apple (Verified Allergy, Unknown, RASH, 06/27/17) Pt only allergic to the apple skins. She is able to eat applesauce or a peeled apple safely. She does take Benadryl if she consumes the apple skin. Metronidazole (Verified Allergy, Unknown, ANAPHYLAXIS, 06/27/17) Adhesives (Verified Adverse Reaction, Mild, SKIN IRRITATION, 06/27/17) Letrozole (Unverified Adverse Reaction, Unknown, severe joint pain, ) Prochlorperazine (Unverified Adverse Reaction, Unknown, nausea, 06/27/17) Uncoded Allergies: UNCLAS THER/AG (Allergy, Unknown, ? INGREDIENT IN COUGH MEDICINE, 05/14/09) Social History Smoking Status: Never Smoker Hx Tobacco Use In Past Year?: No Hx Alcohol Use - Type And Amou: No Hx Substance Use - Type And Am: No Problem List Medical Problems: (1) Acute eruption of skin Status: Acute (2) Anterior neck pain Status: Acute (3) NSTEMI (non-ST elevated myocardial infarction) Status: Acute (4) Uncontrolled hypertension Status: Acute Review of Systems Respiratory: No cough, No shortness of breath, No dyspnea at rest Cardiac: No chest pain, No edema, No palpitations Additional ROS Details: No lightheadedness or dizziness Physical Exam Vital Signs Last Vital Signs Documentation Date Time Temp Pulse Resp B/P (MAP) Pulse Ox O2 Delivery O2 Flow Rate FiO2 06/28/17 08:00 Room Air 06/28/17 07:37 37.4 75 16 95/66 (76) 95 06/28/17 04:00 2.0 Physical Exam Constitutional: Level of Distress: NAD, acutely ill Lungs: Respiratory effort: no dyspnea Auscultation: no wheezing, no rhonchi, pertinent finding (Faint crackles in bases) Cardiovascular: Heart Auscultation: RRR, no murmurs, no rubs, no gallops, pertinent finding (reduced carotid upstroke) Abdomen: Bowel Sounds: normal Inspection & Palpation: soft, non-distended, no tenderness, guarding & rebound Extremities: no edema Assessment and Plan Assessment and Plan 1) NSTEMI likely secondary to Takotsubo CM 2) Acute systolic CHF 3) Negative cath for CAD this admit 4) HTN 5) Severe LV dysfunction on admit likely secondary to #1 but has hx Adriamycin and RTX for breast CA Looks much better today Still with reduced carotid upstroke and increased HR suggesting reduced Cardiac outpt (CI 2.6 at time of cath) Change BB to toprol 12.5 BID no lasix, she will diurese on own as LV function improves Watch 24 hours for arrhythmias Hopefully home tomorrow Ambulate Laboratory Results Last 24 Hours Test 06/27/17 11:54 06/27/17 12:00 06/27/17 12:35 06/27/17 16:54 Bedside Blood Gas pH (LAB) 7.42 7.36 Bedside Blood Gas pCO2 (LAB) 35 mmHg 44 mmHg Bedside Blood Gas pO2 (LAB) 64 mmHg 36 mmHg Bedside Blood Gas HCO3 (LAB) 23 meq/L 25 meq/L Bedside Blood Gas Total CO2 24 mEq/l 26 mEq/l Bedside Blood Gas Base Excess (LAB) -2.0 meq/L -1.0 meq/L Bedside Blood Gas O2 Saturation 93.0 % 66.0 % Troponin I 3.170 ng/ml 2.320 ng/ml
[2017-06-28] MEDS: METOPROLOL SUCC 25MG EXT REL TAB PO SCH ×2 (11:41→20:45)
[2017-06-28] MEDS: ACETAMINOPHEN 325 MG TAB PO PRN ×2 (14:44→23:27)
--- NOTE | 2017-06-28 20:01 | Family Medicine Progress Note ---
Progress Note Date of Service Jun 28, 2017. Subjective Pt evaluation today including: conversation w/ patient, physical exam, chart review, lab review doing well. no CP, SOB Constitutional: No fever, No chills Eyes: No worsening of vision ENT: No hearing loss Respiratory: No cough, No sputum Cardiovascular: No chest pain Abdomen: No pain, No nausea Musculoskeletal: No joint pain Female : No dysuria Neurologic: No memory loss, No paralysis Psychiatric: No depression symptoms Heme: No abnormal bleeding/bruising Endo: No fatigue Medications Current Inpatient Medications Medications (Trade) Dose Ordered Sig/Liang Route Start Time Stop Time Status Last Admin Dose Admin Ioversol (Optiray 320) 100 ml UD PRN IV 06/27/17 00:00 07/01/17 00:00 Acetaminophen (Tylenol Tab) 650 mg Q4H PRN PO 06/27/17 02:15 07/27/17 02:14 06/28/17 23:27 650 MG Al Hydrox/Mg Hydrox/Simethicone (Maalox Max Susp) 15 ml Q4H PRN PO 06/27/17 02:15 07/27/17 02:14 Magnesium Hydroxide (Milk Of Magnesia Susp) 30 ml Q12H PRN PO 06/27/17 02:15 07/27/17 02:14 Ondansetron HCl (Zofran Inj) 4 mg Q6H PRN IV 06/27/17 02:15 07/27/17 02:14 06/27/17 09:38 4 MG Morphine Sulfate (MoRPHine SULFATE INJ) 2 mg Q30M PRN IV 06/27/17 02:15 07/11/17 02:14 06/27/17 03:34 2 MG Aspirin (Ecotrin Tab) 81 mg QAM PO 06/27/17 09:00 07/27/17 08:59 06/28/17 08:26 81 MG Polyethylene (Miralax Powder Packet) 17 gm DAILY PRN PO 06/27/17 02:15 07/27/17 02:14 Lorazepam (Ativan Tab) 0.5 mg HS PRN PO 06/27/17 02:15 07/27/17 02:14 Promethazine HCl (Phenergan Supp) 25 mg DAILY PRN [place] 06/27/17 02:15 07/27/17 02:14 Ranitidine HCl (zANTac TAB) 300 mg DAILY PO 06/27/17 09:00 07/27/17 08:59 06/28/17 08:26 300 MG Miscellaneous (Iv Fluids Completed) 1 ea PRN PRN N/A 06/27/17 03:00 06/27/18 02:59 Potassium Chloride (Klor-Con Tab) 20 meq QAM PO 06/27/17 09:00 06/29/17 09:01 06/28/17 08:26 20 MEQ Metoprolol Succinate (Toprol Xl Tab) 12.5 mg BID PO 06/28/17 09:30 07/28/17 09:29 06/28/17 20:45 12.5 MG Objective Vital Signs Date Time Temp Pulse Resp B/P (MAP) Pulse Ox O2 Delivery O2 Flow Rate FiO2 06/29/17 04:00 36.6 68 16 103/69 (80) 94 Room Air 06/29/17 04:00 94 Room Air 06/29/17 00:00 37.1 119/80 (93) 93 Room Air 06/29/17 00:00 93 Room Air 06/28/17 19:53 93 Room Air 06/28/17 19:31 37.0 71 18 101/70 (80) 93 Room Air 06/28/17 15:54 Room Air 06/28/17 15:13 36.9 79 20 112/74 (87) 91 Room Air 06/28/17 14:06 77 20 118/78 (91) 98 Room Air 06/28/17 12:00 Room Air 06/28/17 11:47 37.1 76 18 112/81 (91) 94 Room Air 06/28/17 09:24 105/66 (79) 06/28/17 08:00 Room Air 06/28/17 07:37 37.4 75 16 95/66 (76) 95 Room Air Physical Exam General Appearance: WD/WN, no apparent distress Eyes: normal inspection ENT: hearing grossly normal Neck: supple Respiratory/Chest: lungs clear, normal breath sounds, no respiratory distress Cardiovascular: regular rate, rhythm Abdomen: normal bowel sounds, non tender, soft Extremities: normal range of motion, no pedal edema Neurologic/Psychiatric: alert, normal mood/affect, oriented x 3 Assessment and Plan 61-year-old female with past medical history of hypertension, sleep apnea, GERD , breast cancer status post chemo and radiation, chronic headaches presented with chest pain that started yesterday while at rest. Denies any difficulty breathing, palpitations, dizziness lightheadedness, nausea, vomiting, diaphoresis with the chest pain NSTEMI : likely sec to takotsubo CM/nonischemic CM - Troponins trended every 6 hours, downtrended after a peak of 6 - Cardiac catheterization angiographically normal -Echo : The left ventricle is mildly dilated. * Left ventricular systolic function is severely reduced. * Ejection Fraction = 20-25%. * The mid to distal xochitl septum, septum, mid to distal anterior wall , mid to distal lateral, distal half of the inferior wall and apex are thin and akinetic. * No evidence of LV thrombus. * Reduced stroke volume at 45 cc. * The right ventricle is normal in size and function. * Right ventricular systolic pressure is normal. * Grade I diastolic dysfunction, (abnormal relaxation pattern). - metoprolol 12.5 mg BID added HTN - Continue lisinopril GERD - Continue ranitidine Sleep apnea - CPAP ordered Anxiety - Continue lorazepam PRN DVT prophylaxis - SCDs FULL CODE Disposition : monitor in telemetry Resident Physician Supervision Note: I interviewed and examined the patient. Discussed with Dr. Santos and agree with findings and plan as documented in the note. Any exceptions or clarifications are listed here: None Documented By: Hunter Rushing feeling better vitals noted nad breathing unlabored no pallor or icterus nonischemic cardiomyopathy - med management, supportive care, time Resident Tracking Resident Involvement: Resident Care Provided Care Provided: Adult Hospital Medicine
[2017-06-28] MEDS ORDERED: METOPROLOL TARTRATE 25 MG TAB PO SCH (21:00)
[2017-06-29] VITALS: BP 119/80; TEMP 37.1; O2SAT 93
[2017-06-29 04:00] VITALS: BP 103/69; PULSE 68; TEMP 36.6; O2SAT 94
[2017-06-29 07:30] VITALS: BP 118/77; PULSE 64; TEMP 36.8; O2SAT 94
[2017-06-29] MEDS: RANITIDINE HCL 150 MG TAB PO SCH (08:05)
[2017-06-29] MEDS: METOPROLOL SUCC 25MG EXT REL TAB PO SCH (08:05)
[2017-06-29] MEDS: POTASSIUM CHLORIDE 20 MEQ TABCR PO SCH (08:05)
[2017-06-29] MEDS: ASPIRIN 81 MG ECTAB PO SCH (08:05)
[2017-06-29 08:11] LABS: CREATININE 0.53 mg/dl (0.60-1.20); POTASSIUM 3.9 mmol/L (3.5-5.1)
[2017-06-29] MEDS ORDERED: TPRSR25 PO (10:26)
--- NOTE | 2017-06-29 10:28 | Discharge Instructions ---
Discharge Instructions Date of Service Jun 29, 2017. Admission Reason for Admission: Nstemi Discharge Discharge Diagnosis / Problem: Chest pain Discharge Goals Goal(s): Decrease discomfort Activity Recommendations Activity Limitations: resume your previous activity . Instructions / Follow-Up Instructions / Follow-Up You were admitted with c/o chest pain and difficulty breathing. You were admitted and monitored for chest pain and also had cardiac catheterization performed which was normal and it is very likely your chest pain and difficulty breathing where due to a stress induced heart condition called takotsubo cardiomyopathy. Your echocardiogram showed a reduced ejection fraction which can occur with the above condition. You are recommended to follow up with Dr. Mosley next week for a repeat echo. mean while continue to use lisinopril 10 mg daily and a new medication metoprolol 12.5 mg twice daily has been added. Go slow with your physical activity and monitor your weight and your salt intake. It is preferable to have your sodium intake <2000 mg/day or ideally < 1500 mg /day. please follow up with Dr. Mosley next week Follow up with your PCP also in the next week Current Hospital Diet Patient's current hospital diet: AHA Diet (Heart Healthy) Discharge Diet Recommended Diet: AHA Diet (Heart Healthy), Low Sodium Diet (2gm Na) Procedures Procedures Performed: cardiac catheterization Pending Studies Studies pending at discharge: no Medical Emergencies . Who to Call and When: Medical Emergencies: If at any time you feel your situation is an emergency, please call 911 immediately. . Non-Emergent Contact Non-Emergency issues call your: Primary Care Provider . . "Provider Documentation" section prepared by Dede Santos. . Resident Tracking Resident Involvement: Resident Care Provided Care Provided: Adult Hospital Medicine
--- NOTE | 2017-06-29 10:30 | Cardiology Follow-Up ---
Subjective General Date of Service: Jun 29, 2017. Pt evaluation today including: conversation w/ patient, conversation w/ family , chart review, lab review, review of studies History of Present Illness The patient is a 61 year old female Allergies Coded Allergies: Butalbital (Verified Allergy, Severe, "resp. spasms", 06/27/17) codiene/butalbital/caffeine (not acetamin.) Caffeine (Verified Allergy, Severe, "resp. spasms", 06/27/17) Anastrozole (Verified Allergy, Intermediate, no rash but intense itching, 06/28/17) Azithromycin (Verified Allergy, Mild, RASH, 06/28/17) Lansoprazole (Verified Allergy, Mild, rash, 06/28/17) Tramadol (Verified Allergy, Mild, rash, 06/28/17) Apple (Verified Allergy, Unknown, RASH, 06/27/17) Pt only allergic to the apple skins. She is able to eat applesauce or a peeled apple safely. She does take Benadryl if she consumes the apple skin. Metronidazole (Verified Allergy, Unknown, ANAPHYLAXIS, 06/27/17) Adhesives (Verified Adverse Reaction, Mild, SKIN IRRITATION, 06/27/17) Letrozole (Verified Adverse Reaction, Unknown, severe joint pain, 06/28/17) Prochlorperazine (Verified Adverse Reaction, Unknown, nausea, 06/28/17) Uncoded Allergies: UNCLAS THER/AG (Allergy, Unknown, ? INGREDIENT IN COUGH MEDICINE, 05/14/09) Social History Smoking Status: Never Smoker Hx Tobacco Use In Past Year?: No Hx Alcohol Use - Type And Amou: No Hx Substance Use - Type And Am: No Problem List Medical Problems: (1) Acute eruption of skin Status: Acute (2) Anterior neck pain Status: Acute (3) NSTEMI (non-ST elevated myocardial infarction) Status: Acute (4) Uncontrolled hypertension Status: Acute Review of Systems Respiratory: No cough, No shortness of breath, No dyspnea at rest Cardiac: No chest pain, No edema, No palpitations (Scapular pain last night. cold sweats) Physical Exam Vital Signs Last Vital Signs Documentation Date Time Temp Pulse Resp B/P (MAP) Pulse Ox O2 Delivery O2 Flow Rate FiO2 06/29/17 08:00 Room Air 06/29/17 07:30 36.8 64 16 118/77 (91 94 06/28/17 04:00 2.0 Physical Exam Constitutional: Level of Distress: NAD, acutely ill Lungs: Respiratory effort: no dyspnea Auscultation: no wheezing, no rhonchi, pertinent finding (Faint crackles in bases) Cardiovascular: Heart Auscultation: RRR, no murmurs, no rubs, no gallops, pertinent finding (reduced carotid upstroke) Abdomen: Bowel Sounds: normal Inspection & Palpation: soft, non-distended, no tenderness, guarding & rebound Extremities: no edema Assessment and Plan Assessment and Plan 1) NSTEMI likely secondary to Takotsubo CM 2) Acute systolic CHF 3) Negative cath for CAD this admit 4) HTN 5) Severe LV dysfunction on admit likely secondary to #1 but has hx Adriamycin and RTX for breast CA EKG looks like evolving ND which can also be seen with Takotsubo--no mention of coronary vasospasm during cath Looks markedly better today Still with reduced carotid upstroke but HR as improved; NO sx's with ambulation , feels well walking toprol 12.5 BID No arrhythmias other than rare PVC on monitor No signs of active CHF; looks much better perfused today I can not explain cold sweats--No UTI or URI sx's Will plan echo next week and OV next week Laboratory Results Last 24 Hours Test 06/29/17 07:17 Sodium Level 138 mmol/L Potassium Level 3.9 mmol/L Chloride Level 106 mmol/L Carbon Dioxide Level 25 mmol/L Anion Gap 7.0 mmol/L Blood Urea Nitrogen 10 mg/dl Creatinine 0.53 mg/dl Est Creatinine Clear Calc Drug Dose 91.0 ml/min Estimated GFR () 117.9 Estimated GFR (Non- 101.8 BUN/Creatinine Ratio 19.4 Random Glucose 97 mg/dl Calcium Level 9.0 mg/dl
[2017-06-29 11:02] VITALS: BP 118/77; PULSE 64; TEMP 36.8; O2SAT 94
[2017-06-29] MEDS: ACETAMINOPHEN 325 MG TAB PO PRN (11:37)
[2017-06-29 11:38] VITALS: BP 132/87; PULSE 72; TEMP 36.6; O2SAT 98
--- NOTE | 2017-06-29 13:41 | Discharge Summary ---
Discharge Summary Date of Service Jun 29, 2017. Discharge Summary Admission Date: Jun 27, 2017 at 02:45 Discharge Date: Jun 29, 2017 Discharge Disposition: Home Principal Diagnosis: Nonischemic cardiomyopathy Problems/Secondary Diagnoses: Precordial chest pain Immunizations: Have You Had Influenza Vaccine: No History of Tetanus Vaccine?: No History of Pneumococcal: No History of Hepatitis B Vaccine: Unknown Procedures: Cardiac catheterization Consultations: Cardiology Medication Reconciliation New Medications: Metoprolol Succinate (Metoprolol Succinate ER) 25 Mg Tabcr 12.5 MG PO BID for 30 Days Continued Medications: Lisinopril (Zestril) 10 Mg Tab 10 MG PO DAILY, TAB Lorazepam (Ativan) 0.5 Mg Tab 0.5 MG PO HS PRN for Anxiety, TAB Promethazine Hcl (Phenergan Suppository) 25 Mg Supp 25 MG NJ UD PRN for Migraine, #10 SUPP Ranitidine (Zantac) 300 Mg Tab 300 MG PO DAILY Discharge Exam Doing well. Denies any chest pain, shortness of breath or palpitations Review of Systems: Constitutional: No fever, No chills Eyes: No worsening of vision ENT: No hearing loss Respiratory: No cough, No sputum, No shortness of breath Cardiovascular: No chest pain Abdomen: No pain, No nausea, No vomiting Musculoskeletal: No joint pain Genitourinary - Female: No dysuria, No urinary frequency Neurologic: No memory loss, No paralysis Psychiatric: No depression symptoms Physical Exam: General Appearance: WD/WN, no apparent distress Eyes: normal inspection ENT: normal ENT inspection, hearing grossly normal Neck: supple Respiratory/Chest: chest non-tender, lungs clear, normal breath sounds Cardiovascular: regular rate, rhythm, no edema Abdomen / GI: normal bowel sounds, non tender, soft Extremities: normal inspection, no calf tenderness, no pedal edema Neurologic/Psychiatric: alert, normal mood/affect, oriented x 3 Skin: normal color Hospital Course 61-year-old female with a past medical history of hypertension, sleep apnea, GERD presented with complaints of severe back pain which had started as a neck pain prior to arrival. She also noticed she had trouble breathing and the pain then extended across her chest associated with some nausea. She was evaluated in the ER and EKG was found to have some ST/T-wave changes and she was admitted for further evaluation. Overnight her troponin had bumped from 0.58 to 6. She was started on a nitro patch, heparin drip and was given morphine for pain relief. She developed frothy coughing the next morning and was found to have bibasilar crackles and received 10 mg of IV Lasix. Echocardiogram was performed which revealed an ejection fraction of 20-25% and akinesis in multiple areas . She underwent cardiac catheterization which was angiographically normal and it was deemed that her symptoms were likely secondary to nonischemic cardiomyopathy. She was started on metoprolol 12.5 mg twice daily and recommended to continue her lisinopril 10 mg daily. She is to follow-up with Dr. Mosley next week for a repeat echo. She was recommended to continue to stop her home medications and was discharged in stable condition and recommended to decrease her sodium intake and watch for any weight gain. She was also recommended to go slow with her physical activity Resident Physician Supervision Note: I interviewed and examined the patient. Discussed with Dr. Santos and agree with findings and plan as documented in the note. Any exceptions or clarifications are listed here: None Documented By: Hunter Rushing feeling better feeling up to going no new sx. extensive discussions on CHF/med/diet management as well as anticipated recovery, graded exercise, stress management vitals noted nad breathing unlabored no pallor or icterus nonischemic cardiomyopathy - med management, outpt f/u - as above Total Time Spent: Greater than 30 minutes This includes examination of the patient, discharge planning, medication reconciliation, and communication with other providers. Discharge Instructions Please refer to the electronic Patient Visit Report (Discharge Instructions) for additional information. Follow-Up Follow-up with Dr. Mosley in about a week Follow up with PCP in about a week Additional Copies To Thad Mosley,
--- NOTE | 2017-07-02 12:13 | EDITING REQUIRED CODING QUERY ---
CODING QUERY To promote full compliance with coding requirements relating to patient care, provider participation is requested in all cases of pump erector helper uncertainty. Please assist us with the question(s) below: Coding Question(s): There is NSTEMI likely secondary to Takotsubo Cardiomyopathy documented in the record. The Discharge Summary does not document NSTEMI. Please clarify below, in your clinical opinion. ( ) There was possible NSTEMI (x ) NSTEMI was Ruled-Out - see notes. The NSTEMI due to Takotsubo was in error, the elevation in troponin was due to takotsubo, but takotsubo does not cause an KS. Thanks! balta ( ) There was other type of KS - Please Specify Physician's Response(s): Thank you Eliana Ramirez Principal Diagnosis: "_that condition established after study, to be chiefly responsible for occasioning the admission of the patient to the hospital for care." Co-Existing Principal Diagnosis: "_when two or more diagnoses equally meet the criteria for principal diagnosis as determined by the circumstances of admission, diagnostic work up, and/or therapy provided, and the Alphabetic Index, Tabular List, or another coding guideline does not provide sequencing direction, any one of the diagnoses may be sequenced first." "When the physician has documented what appears to be a current diagnosis in the body of the record, but has not included the diagnosis in the final diagnostic statement, the physician should be asked whether the diagnosis should be added." (Source Coding [facility] 2 QTR90. p3-4)
== END 2017-06-29 14:19 | disposition home or self-care (01) | DRG 286 ==
LOC: C.EDB 22:39 → ENRESERV 06-27 02:23 → C.2T 06-27 02:45
PROVIDERS: ADMIT Student in an Organized Health Care Education/Training Program; ATTEND Family Medicine
PROC: 4A023N8 Measurement of Cardiac Sampling and Pressure, Bilateral, Percutaneous Approach (ICD-10-PCS; principal; 2017-06-27 11:22)
PROC: B211YZZ Fluoroscopy of Multiple Coronary Arteries using Other Contrast (ICD-10-PCS; principal; 2017-06-27 11:22)
DX: I51.81 Takotsubo syndrome (principal); I50.21 Acute systolic (congestive) heart failure; I42.9 Cardiomyopathy, unspecified; R07.2 Precordial pain; E87.6 Hypokalemia; I11.0 Hypertensive heart disease with heart failure; K21.9 Gastro-esophageal reflux disease without esophagitis; G47.30 Sleep apnea, unspecified; F41.9 Anxiety disorder, unspecified; Z51.81 Encounter for therapeutic drug level monitoring; Z79.899 Other long term (current) drug therapy; Z85.3 Personal history of malignant neoplasm of breast; Z92.21 Personal history of antineoplastic chemotherapy; Z92.3 Personal history of irradiation; Z90.12 Acquired absence of left breast and nipple; Z87.442 Personal history of urinary calculi; Z88.8 Allergy status to other drugs, medicaments and biological substances; Z91.048 Other nonmedicinal substance allergy status; Z88.1 Allergy status to other antibiotic agents; Z88.3 Allergy status to other anti-infective agents; Z88.5 Allergy status to narcotic agent; Z91.018 Allergy to other foods; Z82.49 Family history of ischemic heart disease and other diseases of the circulatory system; Z83.3 Family history of diabetes mellitus; Z82.3 Family history of stroke

== ENCOUNTER → 2017-07-11 | Outpatient (CLI) | payer OTHER ==
[~2017-07-11] MED LIST changes: +TPRSR25 PO
--- NOTE | 2017-07-11 08:55 | DIAGNOSTIC IMAGING REPORT ---
ABDOMEN LIMITED (US) CLINICAL HISTORY: 61 years-old Female presenting with R10.11,Z87.19 right upper quadrant pain, concern for gallstone or hepatitis. TECHNIQUE: Real-time grayscale and limited color Doppler ultrasound imaging of the abdomen limited to the right upper quadrant was performed. COMPARISON: CT from 04/24/2017. FINDINGS: Pancreas: Visualized portions of the pancreatic head and body normal. Liver: Normal echogenicity and echotexture. No sonographic evidence of hepatic mass. Main portal vein patent with normal directional flow. Biliary: No intrahepatic biliary ductal dilatation. Common bile duct measures up to 6 mm in diameter. Gallbladder: Surgically absent. Right kidney: Minimal pelvocaliectasis. No convincing evidence of hydronephrosis. Ascites: None. Other: 1.5 cm node in the liang hepatis, possibly reactive. IMPRESSION: 1. The patient status post cholecystectomy. 2. Minimal right renal pelvocaliectasis. This could indicate a flaccid system or be due to a distended bladder. Electronically signed by: Homar Mkceon M.D. 07/11/2017 8:53 AM Dictated Date/Time: 07/11/2017 8:50 AM
== END | disposition home or self-care (01) ==
LOC: C.ULTR 08:10
PROVIDERS: ATTEND Nurse Practitioner Family
DX: R10.11 Right upper quadrant pain (principal); Z87.19 Personal history of other diseases of the digestive system